=== PATIENT | male | born 1970 | race Caucasian/White ===

== ENCOUNTER 2018-02-19 16:50 | Emergency (ER) | payer OTHER, SELFPAY ==
[2018-02-19 16:56] VITALS: BP 218/102; PULSE 92; RESP 16; TEMP 36.7; O2SAT 98
--- NOTE | 2018-02-19 17:26 | ED.GENADUL_ITS ---
Discharge Plan Disposition Patient Disposition: HOME Condition: Improving Discharge Details Chief Complaint: FacialProb Clinical Impression: Acute torticollis ED Provider: Ruel Colin Home Meds and New Rx's Prescriptions: New methocarbamol 500 mg tablet 500 - 1,000 mg PO Q6H Qty: 14 RF: 0 Continue simvastatin 10 mg Tablet 10 mg PO DAILY RF: 0 metformin 1,000 mg Tablet 1,000 mg PO DAILY RF: 0 Discharge Instructions Instructions: Spasmodic Torticollis (ED) Additional Instructions: Return if you have worsening discomfort, develop a recurrent headache, develop a fever, or any other acute concerns as we discussed. Continue ice topically 20 minutes at a time, alternating with heat. May use gentle massage as well. Please trial methocarbamol 500-1000 mg every 6 hours as needed for discomfort. May continue to use of ibuprofen 800 mg every 8 hours. Follow-up with regular doctor for recheck and to have your blood pressure repeated. Continue all of your regularly prescribed medication Medical Decision Making 47-year-old male presents with the insidious onset of right neck pain that was severe earlier in the day and associated with inability to turn his neck. Improved with ice therapy today. He arrives with no fever, and pain with a history of hypertension and elevated blood pressure. His neurologic examination is unremarkable without focal motor, sensory deficits. He has reproducible pain on exam with palpation of the anterior cervical neck musculature. Discussed with him that I cannot rule out underlying vascular injury without obtaining a CT scan. Patient states he does not wish to pursue this at this time. The presentation is consistent with muscular pain and spasm and will trial a course of methocarbamol with ongoing use of heat and ice therapy at home. Patient and his partner understand return precautions to the ED. He will have his blood pressure rechecked in the outpatient setting. Return precautions to the ED were discussed at the bedside prior to discharge. HPI General Mode of arrival: ambulatory . Date/Time Provider Initiated Documentation: 02/19/18 16:54 . Limitations to Documentation: no limitations . Information obtained by: patient . History of Present Illness 47 year old M presents to the emergency department with the chief complaint of Right neck pain, described as moderate, Quality is described as aching, dull and constant, and is localized to the right. Patient reports no radiation. Patient started experiencing this day(s) and it has been constant. Cold therapy improves symptom(s), Movement worsens symptoms . HPI Narrative: 47-year-old male presents from home with his partner. He works moving granite blocks and after work yesterday developed gradual onset of right neck pain was associated with transient headache. It improved with heat, ice, ibuprofen. He went back to work and it recurred today and he came home unable to look towards the right due to pain. His partner applied ice with some improvement and now feels better with movement of the neck. He denies fall or other injury. There was no abrupt onset of the pain. He has no motor weakness, numbness, tingling. His headache is resolved. He has no visual deficits. Related Data Home Medications Medication Instructions Recorded Confirmed metformin 1,000 mg PO DAILY 02/19/18 02/19/18 methocarbamol 500 - 1,000 mg PO Q6H #14 tab 02/19/18 simvastatin 10 mg PO DAILY 02/19/18 02/19/18 Previous Rx's Medication Instructions Recorded methocarbamol 500 - 1,000 mg PO Q6H #14 tab 02/19/18 Allergies Allergy/AdvReac Type Severity Reaction Status Date / Time No Known Allergies Allergy Unverified 02/19/18 17:00 General Stated Complaint: FacialProb GONZALES: 3 Review of Systems Review of Systems 6 systems reviewed and otherwise neg Exam Narrative Exam Narrative: GEN: awake, alert, oriented 3. Pleasant, well groomed, interactive. HEAD: Normocephalic, atraumatic ENT: Mucous membranes moist, oropharynx unremarkable, External ear exam unremarkable EYES: PERRL, EOMI NECK: Full ROM, no WILLIAM, no menigismus. The right anterior paraspinous muscles are tender to palpation with spasm present CHEST/RESP: Nontender, clear to auscultation bilateral, no wheeze/rhonchi/rales CARDIOVASCULAR: RRR, no murmur, rub cayetano. 2+ Rad pulse bilateral ABDOMEN: Soft, nontender, no mass. +Bowel sounds EXT: Full ROM, no edema, no rash Neuro: Grossly normal neurologic exam, conversant, interactive. Cranial nerves II through XII intact. Finger to nose intact. Psych: Speech fluent, thoughts congruent, affect normal Course Vital Signs Temperature 36.7 C 02/19/18 16:56 Pulse 92 H 02/19/18 16:56 Respiratory Rate 16 02/19/18 16:56 Blood Pressure 218/102 H 02/19/18 16:56 Pulse Oximetry 98 02/19/18 16:56 Temperature 36.7 C 02/19/18 16:56 Temperature Source Skin 02/19/18 16:56 Pulse 92 H 02/19/18 16:56 Respiratory Rate 16 02/19/18 16:56 Blood Pressure 218/102 H 02/19/18 16:56 Blood Pressure Position Sitting 02/19/18 16:56 Pulse Oximetry 98 02/19/18 16:56 Oxygen Delivery Method Room Air 02/19/18 16:56 Oxygen Flow Rate 0 02/19/18 16:56 Pain Level 7 02/19/18 16:56
[2018-02-19] MEDS: Methocarbamol 500 MG TAB 1000 MG PO (17:30)
[2018-02-19] MEDS: Ibuprofen 800 MG TAB PO (17:30)
== END 2018-02-19 18:09 | disposition home or self-care (01) ==
LOC: ER 17:44
PROVIDERS: Emergency Provider Emergency Medicine; PCP Internal Medicine
DX: G24.3 Spasmodic torticollis (principal); X50.0XXA Overexertion from strenuous movement or load, initial encounter; Y99.0 Civilian activity done for income or pay; E11.9 Type 2 diabetes mellitus without complications; I10 Essential (primary) hypertension
CPT/HCPCS: 99283

== ENCOUNTER 2023-10-23 07:50 | Observation (INO) | payer BC, SELFPAY ==
[2023-10-23] VITALS (36 sets, daily range): BP systolic 141–188; BP diastolic 30–78; PULSE 79–94; RESP 18–32; TEMP 36.6–38.1; O2SAT 95–98
--- NOTE | 2023-10-23 07:58 | ED.GENADUL_ITS ---
Discharge Plan Disposition Patient Disposition: Admit to [facility] Discharge Details Chief Complaint: Cellulitis Clinical Impression: Cellulitis of left foot, Puncture wound of left foot Primary Care Provider: Nilo Thacker ED Provider: Pankaj Yousif [place] Meds and New Rx's Prescriptions: No Action simvastatin 10 mg Tablet 10 mg PO DAILY metformin 1,000 mg Tablet 1,000 mg PO DAILY lisinopril 40 mg tablet 40 mg PO DAILY Patient Comments: TAKE 1 TABLET BY MOUTH ONCE DAILY FOR 90 DAYS glyburide 5 mg tablet 5 mg PO DAILY Patient Comments: TAKE 1 TABLET BY MOUTH TWICE DAILY FOR 90 DAYS metoprolol tartrate 100 mg tablet 100 mg PO DAILY Patient Comments: TAKE 1 TABLET BY MOUTH TWICE DAILY FOR 90 DAYS levofloxacin 500 mg tablet 500 mg PO DAILY Patient Comments: TAKE ONE TABLET BY MOUTH EVERY DAY FOR 10 DAYS HPI General Date/Time Provider Initiated Documentation: 10/23/23 07:58 . HPI Narrative: MDM This is an overall well-appearing normothermic and not tachycardic 52-year-old diabetic male with left-sided foot ulcer for which he will go for MRI following piperacillin/tazobactam vancomycin blood cultures and assessment of lactate to assess for sepsis. No pain out of proportion to suggest necrotizing soft tissue infection. Patient does have some ischemic changes adjacent to the puncture wound his left foot however his left foot is warm well-perfused so I am not concerned for critical limb ischemia so I do not feel that the patient requires a CT angiogram with runoffs. No significant trauma to left lower extremity so I do not feel that the patient requires an x-ray. No nausea no vomiting to suggest increased risk for intra-abdominal infection. Good range of motion in left ankle and no history of IV drug use so not concern for septic joint. No rash to foot to suggest zoster. No midfoot instability to suggest Lisfranc injury. No left lateral foot instability to suggest Olguin fracture. 9:25 AM Patient metabolic panel showing elevated renal function. No prior for comparison. No acute electrolyte abnormalities. Mild lactic acidosis of 1.8 mmol/L. CBC shows leukocytosis. Normocytic anemia. No thrombocytopenia. Elevated ESR at 52 mm/h. 9:40 AM CRP markedly elevated at 23.74 mg/dL. 12:29 PM I was in touch with Dr. Joy from orthopedics he advised podiatry consult. Unfortunately we do not have podiatry available today. I was in touch with Dr. Joy from orthopedics he advised podiatry consult. I have reached out to [facility] to request podiatry consult. Will keep patient n.p.o. initiate maintenance fluids with NS at 125 cc an hour. 1:42 PM Still waiting on Orthopedic consult from [facility]. MRI read as showing No signs of osteomyelitis nor abscess. 3 PM I spoke with the orthopedic team at [facility], Dr. Miles Dee. He advised hospitalization for IV antibiotics. 4 PM I spoke to Dr. Odonnell who agreed graciously to accept the patient for hospitalization. Patient reports that he does drink alcohol but has no history of withdrawal. He reports that he has not had anything to drink in the past week. He is hypertensive but not tachycardic nor tremulous. My suspicion is low for withdrawal. Given that he was anxious before the MRI and feels slightly anxious now we will treat him with 50 mg of longer acting chlordiazepoxide. HPI This is a 52-year-old [id number] diabetic arrived to the emergency department via private vehicle in setting of left foot pain. Patient was reportedly seen 2 days ago by his primary care provider. He was found to have a staple on the bottom of his left foot. He was initiated on levofloxacin. He has noticed increased redness streaking up onto the dorsal aspect of his left foot. He endorsed a fever last night. No nausea vomiting chest pain no abdominal pain. Patient has been taking decreased p.o. for the past several days. No falls. Exam General: Well-appearing in no acute distress speaking in complete sentences. Head: Normocephalic, atraumatic. Eye: Extraocular eye movements intact. No conjunctival injection. No scleral icterus. Ear, nose, mouth, throat: Grossly normal inspection. Normal voice, handling secretions normally. Neck: Trachea midline. Cardiovascular: Well-perfused distal extremities. Respiratory: Nonlabored respiration. Gastrointestinal: Nondistended abdomen. Musculoskeletal: On the dorsal aspect of the patient's left foot there is a puncture wound overlying the head of the fourth metatarsal with distal ischemic tissue. Left foot warm well-perfused with 2+ PT and DP pulses. No pain out of proportion. No midfoot instability. Skin: Normal for age and race, grossly normal temperature and turgor. No acute rash. Neurologic: Alert and appropriate, no apparent acute deficits. Psychiatric: Mood and manner are appropriate. Grooming and personal hygiene are appropriate. Related Data Home Medications Medication Instructions Recorded Confirmed metformin 1,000 mg tablet 1,000 mg PO DAILY 02/19/18 10/23/23 simvastatin 10 mg tablet 10 mg PO DAILY 02/19/18 10/23/23 glyburide 5 mg tablet 5 mg PO DAILY 10/23/23 10/23/23 levofloxacin 500 mg tablet 500 mg PO DAILY 10/23/23 10/23/23 lisinopril 40 mg tablet 40 mg PO DAILY 10/23/23 10/23/23 metoprolol tartrate 100 mg tablet 100 mg PO DAILY 10/23/23 10/23/23 Allergies Allergy/AdvReac Type Severity Reaction Status Date / Time No Known Allergies Allergy Unverified 10/23/23 08:04 General GONZALES: 3 Medical Decision Making Quality:SDOH Health Related Social Needs: 2 No Data to Display PFSH All Active Problems (Updated 10/23/23 @ 14:28 by Pankaj Yousif MD) Puncture wound of left foot (Acute) Cellulitis of left foot (Acute) Social History Smoking/Tobacco Use Status: Never Smoking risk assessment performed?: Yes Drug use: Never Do you feel safe in your relationship?: Yes
--- NOTE | 2023-10-23 08:00 | DI.MRI_ITS ---
Exam(s) MR LOWER EXTREMITY LT WO/W EXAM: MR LOWER EXTREMITY LT WO/W CLINICAL HISTORY: Diabetic foot infection. TECHNIQUE: Multiplanar multisequence MRI was performed. CONTRAST MATERIAL: IV Contrast: 20 mL of Dotarem contrast administered. COMPARISON: No exams were available for comparison FINDINGS: BONES/JOINTS: No evidence of fracture. No evidence of bone lesion. No marrow edema is present to sugg est osteomyelitis. LIGAMENTS: The medial and lateral collateral ligaments are intact. MUSCULOTENDINOUS STRUCTURES: Visualized portion of the planar fascia is unremarkable. The visualized intrinsic muscles and tendons of the foot are unremarkable. SOFT TISSUES: There is edema seen in the soft tissues of the foot but no focal fluid collection is se en to suggest an abscess. There is a small defect in the skin on the plantar surface of the foot cleve r the region of the 3rd metatarsophalangeal joint (series [id number], image 19). This may represent the p atient's wound site. ENHANCEMENT: No suspicious enhancement identified. OTHER FINDINGS: None. IMPRESSION: 1. No findings to suggest osteomyelitis or abscess. 2. Edema seen in the soft tissues of the foot which may represent a cellulitis. 3. Small skin defect on the plantar surface of the foot near the region of the 3rd metatarsophalangea l joint which may represent the patient's wound site. DATA REPOSITORY:
[2023-10-23 09:05] LABS: Abs Immature Grans 0.18 10^3/uL (0.0-0.06); Absolute Basophil Count 0.03 10^3/uL (0.0-0.2); Absolute Eosinophil Count 0.04 10^3/uL (0.0-0.7); Absolute Lymphocyte Count 1.34 10^3/uL (1.2-3.4); Absolute Monocyte Count 0.86 10^3/uL (0.1-0.8); Absolute Neutrophil Count 10.33 10^3/uL (1.2-6.7); Basophils % 0.2 %; Eosinophils % 0.3 %; HCT 35.6 % (40.0-50.0); HGB 12.5 g/dL (13.5-17.5); Immature Grans % 1.4 %; Lactate 1.8 mmol/L (0.6-1.4); Lymphocytes % 10.5 %; MCH 29.6 pg (27.0-33.0); MCHC 35.1 % (32.0-36.0); MCV 84 fL (80-95); MPV 10.8 fL (8.0-11.0); Monocytes % 6.7 %; Neutrophils % 80.9 %; Platelet Count 146 10^3/uL (130-400); RBC 4.23 10^6/uL (4.36-5.78); RDW-SD 36.7 fL; WBC 12.77 10^3/uL (4.4-10.8)
[2023-10-23] MEDS: Normal Saline 500 ML IV (09:05)
[2023-10-23 09:07] LABS: ESR 52 mm/hr (0-20)
[2023-10-23] MEDS: Midazolam 2 MG/2 ML VIAL IVP ×2 (09:10→11:11)
[2023-10-23] MEDS: PIPERACILLIN/TAZO 4.5 GM in Normal Saline 100 ML IVPB ×2 (09:11→18:42)
[2023-10-23 09:20] LABS: Anion Gap 7.1 mmol/L (3-11); BUN 25 mg/dL (7-18); CO2 27.9 mmol/L (21.0-32.0); CREATININE 1.5 mg/dL (0.70-1.30); Calcium 8.5 mg/dL (8.5-10.1); Chloride 98 mmol/L (98-107); Estimated GFR 54.98 (mL/min/1.73m2); Glucose 266 mg/dL (74-106); Potassium 4.4 mmol/L (3.5-5.1); Sodium 133 mmol/L (136-145)
[2023-10-23 09:30] LABS: C-Reactive Protein 23.74 mg/dL (<or=0.5)
[2023-10-23] MEDS: VANCOMYCIN/WATER (PEG) 2 GM/400 ML BAG IVPB (10:06)
[2023-10-23] MEDS: Gadoterate meglumine 20 ML SYRINGE IVP (12:07)
[2023-10-23] MEDS: Normal Saline Flush 10 ML SYR IVP ×3 (12:07→21:17)
[2023-10-23] MEDS: Normal Saline 1,000 ML 125 ML IV (12:33)
--- NOTE | 2023-10-23 14:45 | DI.RAD_ITS ---
Exam(s) XR FOOT LT COMPLETE EXAM: XR FOOT LT COMPLETE CLINICAL HISTORY: ? foreign body. TECHNIQUE: 2D digital imaging was performed of the left foot. Three images were obtained. AP, obli que and lateral views were obtained. COMPARISON: No exams were available for comparison FINDINGS: BONES: No acute fracture is present. No bony destructive lesion is seen. Pes planus. There is an ent hesophyte at the posterior calcaneus. The distal aspect of a sideplate is seen in the distal fibula. JOINTS: No dislocation present. Degenerative changes are present particularly at the talonavicular rigo int. SOFT TISSUE: There is soft tissue swelling of the foot. No radiopaque foreign body is identified. E xtensive vascular calcifications are present. IMPRESSION: No radiopaque foreign body is identified. DATA REPOSITORY: RADIATION DOSE DELIVERED:
[2023-10-23] MEDS: chlordiazePOXIDE 25 MG CAP 50 MG PO (15:54)
--- NOTE | 2023-10-23 16:50 | HPE_ITS ---
Date of service: 10/23/23 Time of Service: 16:50 Assessment and Plan Assessment and plan (1) Sepsis: Status: Acute Assessment and plan: Meeting SIRS criteria with HR at 91 and RR at 29 & Source of infection left foot wound, cellulitis, ulcer---> Sepsis Not severe as BP is stable As below (2) Cellulitis of left foot: Status: Acute Assessment and plan: ortho consult in ED and [facility] podiatry consult Continue IV antibiotics: Vancomycin and Zosyn Pharmacy consult Monitor renal function Monitor for severe sepsis: VS q4 and PRN Blood cultures pending (3) Diabetes: Status: Chronic Assessment and plan: Gluc AC and HS with SSI coverage Cr 1.5 baseline uniknown but reports not CKD ; will start slow IV hydration BMP in AM (4) ETOH abuse: Status: Chronic Assessment and plan: CIWA scoring Q4 with VS If positive scoring f/u with rehabilitation teacher provider for PRN phenobarbital dosing (5) On deep vein thrombosis (DVT) prophylaxis: Status: Acute Assessment and plan: On LMWH SC (6) Discharge planning issues: Status: Acute Assessment and plan: CM to f/u Discussed with Dr Barbour History of Present Illness History of Present Illness Chief Complaint: Left foot pain Narrative: This 48 years old male patient with a past medical history of [id number] diabetes, EtOH abuse without drinking for the past week presented to the ED at [facility] via private vehicle for evaluation of left foot pain. The patient reported having been seen 2 days ago by his primary care provider at which point a staple was removed from the bottom of his left foot with initiation of oral levofloxacin. The patient reported noticing increased redness streaking up onto the dorsal aspect of his left foot. The patient reported a fever the previous night as well as decreased oral intake for the past several days. The patient denies falls, nausea vomiting. Upon examination the ED provider noticed a left foot discolored ulcer on the sole of his foot. Labs in the ED were unremarkable except for a WBC of 12.77 and H&H of 12.5 and 35.6, absolute neutrophil count of 10.33, ESR of 52, lactate of 1.8, sodium of 133, BUN of 25 with a creatinine of 1.5, CRP of 23.74. Blood cultures were drawn and pending. MRI of the lower left foot showed no abscess or osteomyelitis but soft tissue edema which may represent cellulitis; wound site possibly noticed on the plantar surface of the foot near the third metatarsophalangeal joint. X-ray showed no fracture and no foreign body to the left foot. Dr. Joy from the orthopedic services advised for podiatry consult but podiatry was not available today onsite. Orthopedist from [facility] Dr. Miles Dee advised for hospitalization and IV antibiotics. The hospitalist was contacted and the patient admitted to the medical surgical floor for evaluation of left foot wound, ulcer, left foot cellulitis. Vancomycin and Zosyn were initiated. The patient received 50 mg of long-acting Librium in the ED prior to MRI due to anxiety but low suspicion of alcohol withdrawal. The patient denied dizziness, change in vision, chest pain or abdominal pain, other gastrointestinal or genitourinary symptoms. The patient confirms that he is a full code. Review of Systems All systems reviewed & are unremarkable except as noted in HPI and below PFSH All Active Problems (Updated 10/23/23 @ 17:27 by Janina Deal APRN) Sepsis (Acute) ETOH abuse (Chronic) Discharge planning issues (Acute) On deep vein thrombosis (DVT) prophylaxis (Acute) Diabetes (Chronic) Puncture wound of left foot (Acute) Cellulitis of left foot (Acute) Social History Smoking/Tobacco Use Status: Never Smoking risk assessment performed?: Yes Drug use: Never Do you feel safe in your relationship?: Yes Meds Allergies and Home Medications Allergies Allergy/AdvReac Type Severity Reaction Status Date / Time No Known Allergies Allergy Unverified 10/23/23 08:04 Home Medications Medication Instructions Recorded Confirmed Type metformin 1,000 mg tablet 1,000 mg PO DAILY 02/19/18 10/23/23 History glyburide 5 mg tablet 5 mg PO DAILY 10/23/23 10/23/23 History levofloxacin 500 mg tablet 500 mg PO DAILY 10/23/23 10/23/23 History lisinopril 40 mg tablet 40 mg PO DAILY 10/23/23 10/23/23 History metoprolol tartrate 100 mg tablet 100 mg PO BID 10/23/23 10/23/23 History simvastatin 40 mg tablet 40 mg PO QPM 06/28/24 06/28/24 History Exam Narrative Exam Narrative: Constitutional The patient is sitting in chair comfortable reports minimal pain when left foot is examined The patient is without acute distress and has an obese body habitus. HENMT: Facial structures with normal appearance Neuro:alert and oriented X3 No neurological focal deficit Resp: Clear lung bilaterally Cardio: regular rhythm, S1, S2, no murmur, capillary refill<3 sec., bilateral radial and dorsalis pedis pulses are positive, edmea to left LE > right LE GI: Abdomen is not distended, soft and non tender, bowel sounds are present : Negative Costovertebral angle tenderness, no bladder distension Back/spine/Pelvis: No back tenderness, normal alignment Integumentary: ulcer to the plantar aspect of the left foot at the 3rd level with central wound, cap refill + to left toe despite discoloration Extremities: strength 5/5 to bilateral lower and upper extremities Psych: RASS 0, congruent mood and normal affect. Results Labs 10/23/23 08:49 10/23/23 08:49 Labs: Laboratory Results - last 24 hr 10/23/23 08:49 WBC 12.77 H RBC 4.23 L Hgb 12.5 L Hct 35.6 L MCV 84 MCH 29.6 MCHC 35.1 RDW 12.0 Plt Count 146 MPV 10.8 Immature Gran % 1.4 Neutrophils % 80.9 Lymphocytes % 10.5 Monocytes % 6.7 Eosinophils % 0.3 Basophils % 0.2 Nucleated RBC % 0.0 Absolute Neutrophils 10.33 H Absolute Lymphocytes 1.34 Absolute Monocytes 0.86 H Absolute Eosinophils 0.04 Absolute Basophils 0.03 ESR 52 H VBG Lactate 1.8 H Sodium 133 L Potassium 4.4 Chloride 98 Carbon Dioxide 27.9 Anion Gap 7.1 BUN 25 H Creatinine 1.5 H Est GFR (CKD-EPI 2020) 54.98 Glucose 266 H Calcium 8.5 C-Reactive Protein 23.74 H Last Vital Signs Temp 36.6 C 10/23/23 08:03 Pulse 91 H 10/23/23 15:55 Resp 29 H 10/23/23 13:20 BP 175/33 H 10/23/23 15:55 Pulse Ox 96 10/23/23 15:54 Time Spent Time spent with Patient: >75 minutes Time was spent: preparing to see the patient(eg.review tests), obtaining and/or reviewing separately otained hiistory, ordering medications,tests, procedures, referring, communicating with other health care director rn, indepentently interpreting results, counseling the patient and care coordination
--- NOTE | 2023-10-23 17:41 | NUR.NOTE ---
Nursing Note: Patient arrived to floor alert and orientated, denies pain at this time, ambulated from wheelchair to chair, left foot +4 edema, redness, toe darkened and cool, darkened warm area also noted on upper foot pad, vitals in flow sheet, provider notified of sepsis concern and will come to floor to evaluate. Per INSULATION ESTIMATOR patient received antibiotics in ER.
[2023-10-23] MEDS: Enoxaparin 40 MG/0.4 ML SYR SC (18:35)
[2023-10-23] MEDS: Insulin Aspart 300 UNITS/3 ML PEN SC ×2 (18:43→22:53)
[2023-10-23] MEDS: Metoprolol 50 MG TAB 100 MG PO (20:25)
[2023-10-23] MEDS: Simvastatin 40 MG TAB PO (20:26)
[2023-10-23] MEDS: Lactated Ringers 1,000 ML 80 ML IV (20:37)
[2023-10-23] MEDS: VANCOMYCIN/WATER (PEG) 1 GM/200 ML BAG IV (22:59)
[2023-10-24] VITALS (7 sets, daily range): BP systolic 145–169; BP diastolic 48–69; PULSE 83–94; RESP 16–18; TEMP 36.7–38; O2SAT 94–98
--- NOTE | 2023-10-24 | DI.CT_ITS ---
Exam(s) CT ABD AORTA CTA W RUNOFF EXAM: CT ABD AORTA CTA W RUNOFF CLINICAL HISTORY: ischemic toes. TECHNIQUE: Imaging Protocol: Axial computed tomography images with coronal and sagittal reformatted images were created and reviewed CONTRAST MATERIAL: Intravenous: Omnipaque 350 Contrast volume:150 Oral: None COMPARISON: No exams were available for comparison FINDINGS: AORTA: No evidence of abdominal aortic aneurysm. No dissection. The abdominal aorta is calcified bu t not enlarged. Common iliac arteries are calcified but not enlarged nor significantly stenotic. Ex ternal iliac arteries are patent. Internal iliac arteries are heavily calcified. Bilateral common femoral arteries are peripherally calcified but patent. Both SFA arteries are heavi ly calcified making evaluation difficult. Multilevel disease but no occlusion of these vessels seen and the popliteal arteries are patent bilaterally and without aneurysmal dilatation. The runoff vess els in the calves are heavily calcified, making evaluation difficult. ABDOMEN: There is no ascites. LIVER: Liver is hypodense implying steatosis. There no discrete focal hepatic lesions identified . No dilated intrahepatic ducts. GALLBLADDER/BILIARY: Gallbladder is contracted. Cannot exclude calculi. CBD is not dilated. PANCREAS: No evidence of pancreatic mass nor dilatation of the pancreatic duct. SPLEEN: Spleen is not enlarged. There are no intrasplenic lesions. Splenic and portal veins are abdullahi nt. ADRENALS: There are no significant adrenal masses. KIDNEYS: Both kidneys exhibit normal size. No cysts nor solid renal masses. No calculi nor hydronep hrosis. No solid renal masses. ABDOMINAL AORTA: Calcified but not enlarged. LYMPH NODES: There is no retroperitoneal nor para-aortic adenopathy. No obvious mesenteric masses. ABDOMINAL WALL: No evidence of significant anterior abdominal wall hernia. GI: There is no evidence of bowel obstruction, free air, nor abscess. PELVIS: LYMPH NODES: There is no intrapelvic nor inguinal adenopathy. GI: No evidence of appendicitis.No evidence of sigmoid diverticulitis. URINARY BLADDER: No calculi nor masses evident REPRODUCTIVE: Prostate size normal. Seminal vesicles unremarkable. Calcification noted in bilateral vas deferens, usually seen with diabetes. OSSEOUS: No significant osseous lesions. IMPRESSION: 1. There is heavy peripheral calcification of the runoff vessels of both calves, limiting assessment for patency of these vessels. There is also calcification of the bilateral femoral arteries/SFAand b ilateral popliteal arteries. There are no popliteal artery aneurysms. Tibioperoneal trunks are also calcified. 2. No evidence of abdominal aortic aneurysm. No aneurysm nor tight stenosis of the iliac arteries. The internal iliac arteries are heavily calcified. 3. Calcification of bilateral vas deferens noted. This is usually seen with diabetes. 4. Other findings as above. RADIATION DOSE DELIVERED: 1,575.74mGy.cm Total DLP DATA REPOSITORY: All CT scans at this facility are submitted to the National Radiology Data Registry (NRDR) Dose Index Registry (DIR) with the [employer] ([employer]). RADIATION OPTIMIZATION: All CT scans at this facility use at least one of these dose optimization te chniques: automated exposure control; mA and/or kV adjustment per patient size (includes targeted exa ms where dose is matched to clinical indication); or iterative reconstruction.
--- NOTE | 2023-10-24 | DI.CT_ITS ---
Exam(s) CT CHEST WO EXAM: CT CHEST WO CLINICAL HISTORY: atheroembolic event. TECHNIQUE: Imaging protocol: Axial computed tomography images were obtained and coronal and sagittal reformatted images were created and reviewed. COMPARISON: No exams were available for comparison FINDINGS: Examination is limited due to the lack of IV contrast material. The examination is limited due to pa tient motion artifact. Tracheobronchial tree: Patent where visualized. Pulmonary parenchyma: No consolidation or dominant measurable mass. No architectural distortion. Mediastinum and Simran: No dominant adenopathy or fluid collection. The esophagus is unremarkable. Thyroid gland: Unremarkable. Pleura: No effusion or pneumothorax. Heart: Cardiomegaly. Coronary artery calcification is present. No pericardial effusion. Aorta: Thoracic aorta non-dilated. Atherosclerotic calcification is present. Upper abdomen: There is decreased attenuation of the liver suggesting fatty infiltration. Lymph nodes: Within normal limits. Soft tissues: Bilateral gynecomastia. Bones:Within normal limits for the patient's age. IMPRESSION: 1. No acute pulmonary process. 2. Vascular evaluation is limited due to the lack of IV contrast material. 3. Coronary artery calcification and atherosclerotic calcification is present. 4. No evidence of a thoracic aortic aneurysm. 5. Fatty infiltration of the liver. RADIATION DOSE DELIVERED: 584.68mGy.cm Total DLP 584.68mGy.cm Total DLP DATA REPOSITORY: All CT scans at this facility are submitted to the National Radiology Data Registry (NRDR) Dose Index Registry (DIR) with the [employer] (ACR). RADIATION OPTIMIZATION: All CT scans at this facility use at least one of these dose optimization te chniques: automated exposure control; mA and/or kV adjustment per patient size (includes targeted exa ms where dose is matched to clinical indication); or iterative reconstruction.
[2023-10-24] MEDS: Acetaminophen 325 MG TAB PO ×3 (00:59→20:34)
[2023-10-24] MEDS: PIPERACILLIN/TAZO 4.5 GM in Normal Saline 100 ML IVPB ×4 (01:05→20:34)
[2023-10-24 06:29] LABS: Abs Immature Grans 0.14 10^3/uL (0.0-0.06); Absolute Basophil Count 0.02 10^3/uL (0.0-0.2); Absolute Eosinophil Count 0.05 10^3/uL (0.0-0.7); Absolute Lymphocyte Count 1.23 10^3/uL (1.2-3.4); Absolute Monocyte Count 0.97 10^3/uL (0.1-0.8); Absolute Neutrophil Count 7.74 10^3/uL (1.2-6.7); Basophils % 0.2 %; Eosinophils % 0.5 %; HCT 32.3 % (40.0-50.0); HGB 11.2 g/dL (13.5-17.5); Immature Grans % 1.4 %; Lymphocytes % 12.1 %; MCH 28.9 pg (27.0-33.0); MCHC 34.7 % (32.0-36.0); MCV 84 fL (80-95); MPV 10.8 fL (8.0-11.0); Monocytes % 9.6 %; Neutrophils % 76.2 %; Platelet Count 176 10^3/uL (130-400); RBC 3.87 10^6/uL (4.36-5.78); RDW 12.2 % (11.8-14.1); RDW-SD 37.1 fL; WBC 10.15 10^3/uL (4.4-10.8)
[2023-10-24 06:39] LABS: Anion Gap 12.8 mmol/L (3-11); BUN 24 mg/dL (7-18); CO2 23.2 mmol/L (21.0-32.0); CREATININE 1.6 mg/dL (0.70-1.30); Calcium 8.3 mg/dL (8.5-10.1); Chloride 101 mmol/L (98-107); Estimated GFR 50.88 (mL/min/1.73m2); Glucose 222 mg/dL (74-106); Potassium 3.8 mmol/L (3.5-5.1); Sodium 137 mmol/L (136-145)
[2023-10-24 06:40] LABS: Magnesium 1.4 mg/dL (1.8-2.4)
[2023-10-24] MEDS: Normal Saline Flush 10 ML SYR IVP ×2 (08:14→20:37)
[2023-10-24] MEDS: Metoprolol 50 MG TAB 100 MG PO ×2 (08:14→21:05)
[2023-10-24] MEDS: Insulin Aspart 300 UNITS/3 ML PEN SC ×4 (08:19→23:06)
--- NOTE | 2023-10-24 09:00 | INITIAL_ITS ---
Date of service: 10/24/23 Time of Service: 09:00 Care Management Initial Assmt Initial Assessment Reason for Hospitalization: sepsis Functional Status/Living Situation Patient Presentation: Kenisha was sitting up in bed visiting with his partner Alba when CM met with him. He was polite but did not fully engage with CM, answering questions with minimal responses. Kenisha denied having pain at this time but indicated that he does not feel well. He reported that he has not been eating much recently. When his lunch tray was delivered he was not very interested.. Kenisha was admitted with left foot pain. He had a staple removed from his foot a couple of days ago by his PCP and was placed on antibiotics. He presented to the ED when he developed pain, fever and cellulitis. Kenisha informed CM that he plans to discharge home today although that is not the provider's plan at this time. Town of Residence: [place], [place] Resides with: Other (marketing developer Alba) Significant Other/Family: Local Employment Status: Employed Instrumental Activities of Daily Living (ADLs): Independent Medications Medication Management: No Issues/Barriers identified Advance Directives Advance Directives: Do you have an Advance Directive: N 02/19/18 17:44 AD On File at [facility]: N 02/19/18 17:44 Date Asked 10/23/23 10/23/23 07:59 AD Date Reviewed COLST On File at [facility] COLST Date Scanned Comment: CM provided forms Code Status Resuscitation Status Full Code Portal Pt does not currently have a portal and education provided: No Portal Education: Other (not local) Insurance Coverage/Financial Issues Insurance: /[facility] ACO Member: No Care Team Visit Care Team Role Provider Type Nilo Thacker Primary Care Provider NON-[facility] STAFF PHYSICIAN Lydia Ellsworth, DPM Other [facility]iders [facility] Catrachito Wiseman, KENIA Other Providers CERT REG NURSE PROJECT CONTROL MANAGER SUSAN MyrickM Other Providers [facility] Pankaj Yousif MD Emergency Provider [facility] STAFF PHYSICIAN Paulino Barbour MD Admit Provider [facility] STAFF PHYSICIAN Attending Provider Discharge Potential Discharge Needs: PCP F/U Appt Anticipated Barriers to Discharge: Medical Status Patient/Family Education Needs: Review discharge instructions, discuss Ask Me Three Transportation: Private vehicle Plan: Anticipate Kenisha will be discharged home with no new services when medically stable. He will follow up with his community provider and plan of care and transport with a friend. CM will follow and continue to assess for discharge needs. PFSH All Active Problems (Updated 10/24/23 @ 11:48 by Wilma Sabillon NP) ETOH abuse (Chronic) Discharge planning issues (Acute) On deep vein thrombosis (DVT) prophylaxis (Acute) Diabetes (Chronic) Puncture wound of left foot (Acute) Cellulitis of left foot (Acute) Social History Smoking/Tobacco Use Status: Never Smoking risk assessment performed?: Yes Drug use: Never Housing: house Do you feel safe in your relationship?: Yes SDOH(Care Management) Screening Will the Patient Participate in the Screening?: Yes Do you worry about having a steady place to live?: no Problems where you live: no known problems In the past 12 months, have you had to go without electric, gas, oil or water in your home?: no Have you or anyone in your house had to go without enough food to eat?: no Has lack of transportation kept you from medical appointments or from doing things needed for daily living?: no Has anyone in your support network made you feel unsafe for any reason?: no
[2023-10-24] MEDS: VANCOMYCIN/WATER (PEG) 1 GM/200 ML BAG IV ×2 (10:16→23:06)
--- NOTE | 2023-10-24 11:25 | PGE_ITS ---
Date of Service Date of service: 10/24/23 Time of Service: 11:25 Assessment and Plan Assessment and plan (1) Sepsis: Status: Resolved Assessment and plan: source left foot cellulitis, hemodynamically stable (2) Cellulitis of left foot: Status: Acute Assessment and plan: ortho consult in ED and [facility] [place] pod[place]ry consult Continue IV antibiotics: Vancomycin and Zosyn Pharmacy consult Monitor renal function Monitor for severe sepsis: VS q4 and PRN Blood cultures pending Third and fourth toes blue concern for blue toe syndrome. Will administer 325 mg aspirin and start aspirin 81 mg daily obtain CTA with runoff to evaluate for possible atheroembolic event consider vascular surgery consultation if appropriate (3) Diabetes: Status: Chronic Assessment and plan: Gluc AC and HS with SSI coverage Cr 1.5 baseline uniknown but reports not CKD ; will start slow IV hydration BMP in AM (4) ETOH abuse: Status: Chronic Assessment and plan: CIWA scoring Q4 with VS If positive scoring f/u with relationship management lead provider for PRN phenobarbital dosing (5) On deep vein thrombosis (DVT) prophylaxis: Status: Acute Assessment and plan: On LMWH SC (6) Discharge planning issues: Status: Acute Assessment and plan: CM to f/u Discussed with Dr Barbour Subjective Subjective Patient reports: no new complaints, feels better, pain is less and afebrile Interval history since last seen: edema and erythema improving but now 2 toes are blue (3&4). Exam Narrative Exam Narrative: Morbidly obese male appearing older than stated age in no acute distress sitting in a recliner head is atraumatic face is flushed eyes nonicteric noninjected oral mucosas moist neck is supple full range of motion neurologic he is awake alert oriented no focal deficits skin is pink warm dry well-perfused cardiovascular regular rate and rhythm his respirations even and unlabored. Plantar aspect of left foot with decreased erythema within the skin markings ischemic tissue over fourth metatarsal remains consistent when compared with pictures in the record from the emergency department yesterday but new discoloration to third and fourth toe which are now blue. No increased pain out of proportion good pulses palpated foot is warm to touch sensation intact Objective Last Vital Signs Temp 37.5 C 10/24/23 07:39 Pulse 83 10/24/23 07:39 Resp 17 10/24/23 07:39 BP 169/69 H 10/24/23 07:39 Pulse Ox 98 10/24/23 07:39 Laboratory Results - last 24 hr 10/24/23 05:59 WBC 10.15 RBC 3.87 L Hgb 11.2 L Hct 32.3 L MCV 84 MCH 28.9 MCHC 34.7 RDW 12.2 Plt Count 176 MPV 10.8 Immature Gran % 1.4 Neutrophils % 76.2 Lymphocytes % 12.1 Monocytes % 9.6 Eosinophils % 0.5 Basophils % 0.2 Nucleated RBC % 0.0 Absolute Neutrophils 7.74 H Absolute Lymphocytes 1.23 Absolute Monocytes 0.97 H Absolute Eosinophils 0.05 Absolute Basophils 0.02 Sodium 137 Potassium 3.8 Chloride 101 Carbon Dioxide 23.2 Anion Gap 12.8 H BUN 24 H Creatinine 1.6 H Est GFR (CKD-EPI 2020) 50.88 Glucose 222 H Calcium 8.3 L Magnesium 1.4 L PAWSS Have you Been Recently Intoxicated or Drunk Within the Last 30 days?: No Have you Ever Experienced Previous Episodes of Alcohol Withdrawal?: No Have you ever Experienced Withdrawal Seizures?: No Have you ever Experienced Delirium Tremens(DT)s?: No Have you ever undergone Alcohol Rehabilitation Treatment (i.e, inpt ot outpatient treatment programs)?: No Have you ever Experienced Blackouts?: No Have you ever Combined Alcohol with other Downers within the last 90 days?: No Have you ever Combined Alcohol with any other Substance of Abuse during the last 90 days?: No Positive Blood Alcohol level on Presentation? [PCS.BAL]: No Evidence of Increased Autonomic Activity (i.e. HR>120, tremor, sweating, agitation, nausea)?: No Result: 0 Time Spent with Patient Time Spent with Patient: 35-49 minutes Time was spent: preparing to see the patient(eg.review tests), obtaining and/or reviewing separately otained hiistory, ordering medications,tests, procedures, referring, communicating with other health neonatal intensive care nurse, indepentently interpreting results and counseling the patient
[2023-10-24] MEDS: MAGNESIUM SULFATE 2 GM/50 ML BAG IVINF (12:09)
--- NOTE | 2023-10-24 13:00 | RT.EKG_ITS ---
APPROVED REPORT Exam: Resting ECG Reason for Exam: ischemic toes Patient Location: I HR:86 bpm ECG Measurements Heart Rate 86 AXIS [place] 149 P 40 QRSd 104 QRS -20 QT 352 T 1 QTc 422 Conclusion Sinus rhythm...normal P axis, V-rate 60- 99 late transition
[2023-10-24] MEDS: Aspirin E.C. 325 MG TABEC PO (13:07)
[2023-10-24 13:55] LABS: Lab Add On Test DONE
[2023-10-24 14:07] LABS: Calculated LDL 63 mg/dL (<100); Cholesterol 132 mg/dL (<200); HDL Cholesterol 34 mg/dL (40-60); Triglyceride 179 mg/dL (<150)
[2023-10-24] MEDS: Lactated Ringers 1,000 ML 100 ML IV (14:46)
[2023-10-24] MEDS: Omnipaque 350 MG/ML 100 ML BTL IJ (16:16)
[2023-10-24] MEDS: Normal Saline - Diluent 50 ML VIAL IJ ×2 (16:17→16:18)
[2023-10-24] MEDS: Omnipaque 350 MG/ML 50 ML BTL IJ (16:17)
--- NOTE | 2023-10-24 17:07 | DI.VRAD_ITS ---
PROCEDURE INFORMATION: Exam: CT Chest Without Contrast; Diagnostic Exam date and time: 10/24/2023 4:02 PM Age: 52 years old Clinical indication: Other: Atheroembolic event TECHNIQUE: Imaging protocol: Diagnostic computed tomography of the chest without contrast. 3D rendering (Not supervised by radiologist): MIP and/or 3D reconstructed images were created by the technologist. COMPARISON: CT ABD AORTA CTA W RUNOFF 10/24/2023 3:38 PM FINDINGS: Lungs: Lung windows are suboptimally visualized secondary to motion. No consolidation. Pleural spaces: Unremarkable. No pneumothorax. No pleural effusion. Heart: Borderline enlarged heart. Coronary arteries: Coronary artery calcification. Esophagus: Mildly thick-walled esophagus, correlate for reflux esophagitis. Lymph nodes: Unremarkable. No enlarged lymph nodes. Vasculature: Unremarkable. No aortic aneurysm. Bones/joints: Degenerative change of the spine Soft tissues: Gynecomastia. IMPRESSION: 1. Assessment of vascular structures is limited without IV contrast 2. Mildly thick-walled esophagus, correlate for reflux esophagitis. Dictated and Authenticated by: Ayala Bates MD. Ordering:CHANG Dillon MD
[2023-10-24] MEDS: Enoxaparin 40 MG/0.4 ML SYR SC (17:36)
--- NOTE | 2023-10-24 18:01 | DI.VRAD_ITS ---
PROCEDURE INFORMATION: Exam: CTA Abdominal Aorta and Bilateral Lower Extremities (Run-off) With Contrast Exam date and time: 10/24/2023 3:38 PM Age: 52 years old Clinical indication: Other: Ischemic toes TECHNIQUE: Imaging protocol: Computed tomographic angiography of the of the abdominal aorta, pelvis and bilateral lower extremities with contrast. 3D rendering (Not supervised by radiologist): MIP and/or 3D reconstructed images were created by the technologist. COMPARISON: MR LOWER EXTREMITY LT WO/W 10/23/2023 11:43 AM FINDINGS: Aorta: Normal caliber abdominal aorta and proximal common iliac arteries with calcified atherosclerosis. Celiac trunk and mesenteric arteries: Narrow origin of celiac,likely median arcuate ligament compression with slight poststenotic dilatation. Mild calcified atherosclerosis at vessel origin. Mild calcified atherosclerosis at origin of SMA without significant stenosis. Probable calcified and noncalcified plaque at origin of PAUL which may produce moderate stenosis. Renal arteries: Mild disease at origin of bilateral renal arteries which appear patent. Lower extremity arteries: Mild calcified atherosclerosis of the bilateral common iliac arteries. Mild calcified atherosclerosis of the bilateral external iliac arteries. Moderate calcified atherosclerosis of the bilateral internal iliac arteries and branch vessels. Moderate disease the bilateral profundus arteries. Mild calcified atherosclerosis of the bilateral common femoral arteries. Moderate calcified atherosclerosis of bilateral femoral arteries. Gkls-[id number] bilateral calcified atherosclerosis of the above the knee and at the knee popliteal artery and moderate calcified atherosclerosis of the below the knee popliteal artery and trifurcation. Dense calcified atherosclerosis of the calf vessels bilaterally, markedly limiting assessment of vessel patency. Bilaterally, dorsalis pedis arteries appear patent. Liver: Liver morphology with prominent left and caudate lobes suggests fibrosis. Hepatic steatosis is likely. No mass. Diaphragm: Right hemidiaphragm elevation. Gallbladder and biliary ducts: Contracted gallbladder without radiodense stones or adjacent inflammatory changes. No biliary ductal dilatation. Pancreas: The pancreas is unremarkable. Spleen: The spleen is unremarkable. Top-normal sized spleen, 12.9 cm craniocaudad. Adrenal glands: The adrenal glands are unremarkable. Kidneys and ureters: No hydronephrosis or nephrolithiasis. Nonspecific perinephric fat stranding. Stomach and bowel: Decompressed stomach. No evidence of bowel obstruction. No pericolonic inflammatory stranding. Diverticulosis without diverticulitis. Appendix: Normal appendix. Urinary bladder: No focal wall thickening of the urinary bladder. Reproductive: Nonenlarged prostate Intraperitoneal space: Unremarkable. No free air. No significant fluid collection. Lymph nodes: See Soft tissues finding. Bones/joints: Degenerative change of the hips Soft tissues: Bilateral fat containing inguinal hernias. Small left and very small right fat containing inguinal hernias.(. Bilateral lower extremity subcutaneous soft tissue stranding, may represent lymphedema, cellulitis, trauma. IMPRESSION: Dense calcified atherosclerosis of the calf vessels bilaterally, markedly limiting assessment of vessel patency. Bilaterally, dorsalis pedis arteries appear patent. Moderate calcified atherosclerosis of the bilateral internal iliac arteries, bilateral femoral arteries, trifurcation and below the knee popliteal arteries. Estimate moderate stenosis at origin of the inferior mesenteric artery. Nonspecific perinephric fat stranding. This may indicate concurrent urinary tract pathology or represent sequela of prior inflammation or infection. Correlate with urinalysis Dictated and Authenticated by: Ayala Bates MD. Ordering:CHANG Dillon MD
[2023-10-24] MEDS: Benzonatate 100 MG CAP PO (20:33)
[2023-10-24] MEDS: Simvastatin 40 MG TAB PO (20:34)
[2023-10-25] MEDS: PIPERACILLIN/TAZO 4.5 GM in Normal Saline 100 ML IVPB ×4 (02:15→19:46)
[2023-10-25 02:26] VITALS: BP 146/77; PULSE 83; RESP 18; TEMP 37.2; O2SAT 97
[2023-10-25 02:28] VITALS: TEMP 37.2
[2023-10-25] MEDS: Benzonatate 100 MG CAP PO ×3 (05:06→20:54)
[2023-10-25 06:57] LABS: Abs Immature Grans 0.05 10^3/uL (0.0-0.06); Absolute Basophil Count 0.04 10^3/uL (0.0-0.2); Absolute Eosinophil Count 0.06 10^3/uL (0.0-0.7); Absolute Lymphocyte Count 0.97 10^3/uL (1.2-3.4); Absolute Monocyte Count 0.99 10^3/uL (0.1-0.8); Absolute Neutrophil Count 7.08 10^3/uL (1.2-6.7); Basophils % 0.4 %; Eosinophils % 0.7 %; HCT 31.9 % (40.0-50.0); Immature Grans % 0.5 %; Lymphocytes % 10.6 %; MCH 28.9 pg (27.0-33.0); MCHC 34.5 % (32.0-36.0); MCV 84 fL (80-95); MPV 10.4 fL (8.0-11.0); Monocytes % 10.8 %; Platelet Count 229 10^3/uL (130-400); RBC 3.81 10^6/uL (4.36-5.78); RDW 12.4 % (11.8-14.1); RDW-SD 37.8 fL; WBC 9.19 10^3/uL (4.4-10.8)
[2023-10-25 07:17] LABS: Anion Gap 11.9 mmol/L (3-11); BUN 19 mg/dL (7-18); CO2 23.1 mmol/L (21.0-32.0); CREATININE 1.8 mg/dL (0.70-1.30); Calcium 8.6 mg/dL (8.5-10.1); Chloride 100 mmol/L (98-107); Estimated GFR 44.18 (mL/min/1.73m2); Glucose 300 mg/dL (74-106); Potassium 3.5 mmol/L (3.5-5.1); Sodium 135 mmol/L (136-145)
[2023-10-25] MEDS: Normal Saline Flush 10 ML SYR IVP ×4 (07:52→20:23)
[2023-10-25] MEDS: Insulin Aspart 300 UNITS/3 ML PEN SC ×4 (07:53→22:11)
[2023-10-25 07:57] VITALS: BP 165/64; PULSE 95; RESP 18; TEMP 37.9; O2SAT 97
[2023-10-25] MEDS: Lactobacillus Acidophilus CAP 1 CAP PO (08:19)
[2023-10-25] MEDS: Metoprolol 50 MG TAB 100 MG PO ×2 (08:20→19:31)
[2023-10-25] MEDS: Aspirin E.C. 81 MG TABEC PO (08:20)
[2023-10-25] MEDS: Lactated Ringers 1,000 ML 100 ML IV (10:07)
[2023-10-25] MEDS: VANCOMYCIN/WATER (PEG) 1 GM/200 ML BAG IV ×2 (10:13→22:11)
--- NOTE | 2023-10-25 10:27 | PGE_ITS ---
Date of Service Date of service: 10/25/23 Time of Service: 10:27 Assessment and Plan Assessment and plan (1) Sepsis: Status: Resolved Assessment and plan: source left foot cellulitis, hemodynamically stable (2) Cellulitis of left foot: Status: Acute Assessment and plan: ortho consult in ED and [facility] [place] Continue IV antibiotics: Vancomycin and Zosyn Pharmacy dosing vanco Monitor renal function Blood cultures pending Third and fourth toes blue, initial concern for blue toe syndrome. aspirin 81 mg daily CTA with runoff to evaluate for possible atheroembolic event consider vascular surgery consultation if appropriate (3) Hypomagnesemia: Status: Acute Assessment and plan: received mag 2 grams IVPB, will repeat level in am. continue oral magnesium and potassium supplementation and follow (4) Diabetes: Status: Chronic Assessment and plan: Gluc AC and HS with SSI coverage Cr 1.5 baseline uniknown but reports not CKD ; will start slow IV hydration BMP in AM (5) ETOH abuse: Status: Chronic Assessment and plan: no signs of withdrawal CIWA scoring Q4 with VS If positive scoring f/u with cardiopulmonary technician and eeg tech provider for PRN phenobarbital dosing can likely dc later today or tomorrow if remains asymptomatic (6) On deep vein thrombosis (DVT) prophylaxis: Status: Acute Assessment and plan: On LMWH SC (7) Discharge planning issues: Status: Acute Assessment and plan: CM to f/u Discussed with Dr Barbour Subjective Subjective Patient reports: no new complaints, tolerating liquids well, tolerating a regular diet and afebrile Interval history since last seen: improving erythema, no pain in toes, warm to touch Exam Narrative Exam Narrative: Morbidly obese male appearing older than stated age in no acute distress sitting in a recliner head is atraumatic face is flushed eyes nonicteric noninjected oral mucosas moist neck is supple full range of motion neurologic he is awake alert oriented no focal deficits skin is pink warm dry well-perfused cardiovascular regular rate and rhythm his respirations even and unlabored. Plantar aspect of left foot with decreased erythema within the skin markings ischemic tissue over fourth metatarsal remains consistent when compared with yesterday, third and fourth toe remain blue, warm to touch, no significant pain. No increased pain out of proportion good pulses palpated foot is warm to touch sensation intact Objective Last Vital Signs Temp 37.9 C H 10/25/23 07:57 Pulse 95 H 10/25/23 07:57 Resp 18 10/25/23 07:57 BP 165/64 H 10/25/23 07:57 Pulse Ox 97 10/25/23 07:57 Laboratory Results - last 24 hr 10/24/23 10/25/23 05:59 06:30 WBC 9.19 RBC 3.81 L Hgb 11.0 L Hct 31.9 L MCV 84 MCH 28.9 MCHC 34.5 RDW 12.4 Plt Count 229 MPV 10.4 Immature Gran % 0.5 Neutrophils % 77.0 Lymphocytes % 10.6 Monocytes % 10.8 Eosinophils % 0.7 Basophils % 0.4 Nucleated RBC % 0.0 Absolute Neutrophils 7.08 H Absolute Lymphocytes 0.97 L Absolute Monocytes 0.99 H Absolute Eosinophils 0.06 Absolute Basophils 0.04 Sodium 135 L Potassium 3.5 Chloride 100 Carbon Dioxide 23.1 Anion Gap 11.9 H BUN 19 H Creatinine 1.8 H Est GFR (CKD-EPI 2020) 44.18 Glucose 300 H Calcium 8.6 Triglycerides 179 H Total Cholesterol 132 LDL Cholesterol, Calc 63 HDL Cholesterol 34 L Add-On Test Request DONE PAWSS Have you Been Recently Intoxicated or Drunk Within the Last 30 days?: No Have you Ever Experienced Previous Episodes of Alcohol Withdrawal?: No Have you ever Experienced Withdrawal Seizures?: No Have you ever Experienced Delirium Tremens(DT)s?: No Have you ever undergone Alcohol Rehabilitation Treatment (i.e, inpt ot outpatient treatment programs)?: No Have you ever Experienced Blackouts?: No Have you ever Combined Alcohol with other Downers within the last 90 days?: No Have you ever Combined Alcohol with any other Substance of Abuse during the last 90 days?: No Positive Blood Alcohol level on Presentation? [PCS.BAL]: No Evidence of Increased Autonomic Activity (i.e. HR>120, tremor, sweating, agitation, nausea)?: No Result: 0 Time Spent with Patient Time Spent with Patient: 35-49 minutes Time was spent: preparing to see the patient(eg.review tests), obtaining and/or reviewing separately otained hiistory, ordering medications,tests, procedures, indepentently interpreting results and counseling the patient
[2023-10-25] MEDS: Potassium Chloride 20 MEQ TABCR PO ×2 (15:09→19:32)
[2023-10-25] MEDS: Magnesium Gluconate 500 MG TAB PO (15:09)
[2023-10-25 15:15] VITALS: BP 135/57; PULSE 91; RESP 18; TEMP 37.5; O2SAT 97
[2023-10-25] MEDS: Enoxaparin 40 MG/0.4 ML SYR SC (17:03)
[2023-10-25] MEDS: Simvastatin 40 MG TAB PO (19:31)
[2023-10-25] MEDS: Acetaminophen 325 MG TAB PO (19:45)
[2023-10-25 20:44] VITALS: BP 150/69; PULSE 98; RESP 20; TEMP 38.3; O2SAT 96
[2023-10-26 00:17] VITALS: TEMP 37
[2023-10-26] MEDS: PIPERACILLIN/TAZO 4.5 GM in Normal Saline 100 ML IVPB ×3 (01:47→15:12)
[2023-10-26] MEDS: Lactated Ringers 1,000 ML 100 ML IV ×2 (03:23→13:50)
[2023-10-26 06:16] LABS: Abs Immature Grans 0.11 10^3/uL (0.0-0.06); Absolute Basophil Count 0.05 10^3/uL (0.0-0.2); Absolute Eosinophil Count 0.14 10^3/uL (0.0-0.7); Absolute Lymphocyte Count 1.15 10^3/uL (1.2-3.4); Absolute Monocyte Count 1.14 10^3/uL (0.1-0.8); Absolute Neutrophil Count 7.14 10^3/uL (1.2-6.7); Basophils % 0.5 %; Eosinophils % 1.4 %; HCT 31.3 % (40.0-50.0); HGB 10.8 g/dL (13.5-17.5); Immature Grans % 1.1 %; Lymphocytes % 11.8 %; MCH 28.8 pg (27.0-33.0); MCHC 34.5 % (32.0-36.0); MCV 84 fL (80-95); MPV 9.7 fL (8.0-11.0); Monocytes % 11.7 %; Neutrophils % 73.5 %; Platelet Count 242 10^3/uL (130-400); RBC 3.75 10^6/uL (4.36-5.78); RDW 12.4 % (11.8-14.1); RDW-SD 37.4 fL; WBC 9.73 10^3/uL (4.4-10.8)
[2023-10-26 06:41] LABS: ALT 15 U/L (16-63); AST 12 U/L (15-37); Albumin 1.8 g/dL (3.4-5.0); Alkaline Phosphatase 66 U/L (46-116); BUN 22 mg/dL (7-18); CREATININE 2.5 mg/dL (0.70-1.30); Calcium 8.8 mg/dL (8.5-10.1); Chloride 101 mmol/L (98-107); Estimated GFR 29.79 (mL/min/1.73m2); Glucose 252 mg/dL (74-106); Magnesium 1.8 mg/dL (1.8-2.4); Potassium 4.1 mmol/L (3.5-5.1); Sodium 136 mmol/L (136-145); Total Protein 6.5 g/dL (6.4-8.2)
[2023-10-26 06:54] LABS: Vancomycin, Random 24.2 ug/mL
[2023-10-26 07:17] VITALS: BP 136/58; PULSE 88; RESP 20; TEMP 37.4; O2SAT 98
[2023-10-26] MEDS: Aspirin E.C. 81 MG TABEC PO (07:51)
[2023-10-26] MEDS: Metoprolol 50 MG TAB 100 MG PO (07:51)
[2023-10-26] MEDS: Potassium Chloride 20 MEQ TABCR PO (07:51)
[2023-10-26] MEDS: Lactobacillus Acidophilus CAP 1 CAP PO (07:51)
[2023-10-26] MEDS: Normal Saline Flush 10 ML SYR IVP (07:52)
[2023-10-26] MEDS: Magnesium Gluconate 500 MG TAB PO (07:52)
[2023-10-26] MEDS: Insulin Aspart 300 UNITS/3 ML PEN SC ×3 (08:02→17:11)
--- NOTE | 2023-10-26 09:26 | PGE_ITS ---
Date of Service Date of service: 10/26/23 Time of Service: 09:26 Assessment and Plan Assessment and plan (1) Sepsis: Status: Resolved Assessment and plan: source left foot cellulitis, hemodynamically stable (2) Cellulitis of left foot: Status: Acute Assessment and plan: ortho consult in ED and [facility] podiatry consult Continue IV antibiotics: Vancomycin and Zosyn Pharmacy dosing vanco Monitor renal function Blood cultures pending Third and fourth toes blue, initial concern for blue toe syndrome. aspirin 81 mg daily CTA with runoff to evaluate for possible atheroembolic event consider vascular surgery consultation if appropriate -Poor visualization of vessels Podaitry recommends transfer to [facility] for I do recommend consultation with vascular- PT is not quite strong I also suspect microvascular disease. Will have to watch and wait for demarcation prior to any amputation. (3) Hypomagnesemia: Status: Acute Assessment and plan: received mag 2 grams IVPB, will repeat level in am. continue oral magnesium and potassium supplementation and follow (4) Diabetes: Status: Chronic Assessment and plan: Gluc AC and HS with SSI coverage Cr 1.5 baseline uniknown but reports not CKD ; will start slow IV hydration BMP in AM (5) ETOH abuse: Status: Chronic Assessment and plan: no signs of withdrawal CIWA scoring Q4 with VS If positive scoring f/u with luncheonette operator provider for PRN phenobarbital dosing can likely dc later today or tomorrow if remains asymptomatic (6) On deep vein thrombosis (DVT) prophylaxis: Status: Acute Assessment and plan: On LMWH SC (7) Discharge planning issues: Status: Acute Assessment and plan: CM to f/u Discussed with Dr Barbour (8) [facility] (acute kidney injury): Status: Acute Assessment and plan: Cr 2.5 from 1.8 Patient is on LR at 100cc/hr up to 150 cc/hour Also on Vancomycin and Zosyn Subjective Subjective Patient reports: tolerating liquids well, tolerating a regular diet (decreased po intake ), voiding w/o difficulty and flatus; denies feels better, diarrhea, nausea, vomiting, shortness of breath or fever Exam Narrative Exam Narrative: Constitutional The patient is sitting inrecliner with legs elevated HENMT: Facial structures with normal appearance Neuro:alert and oriented X3 Resp: Clear lung bilaterally but shallow breathing Cardio: regular rhythm, S1, S2, no murmur, bilateral radial and dorsalis pedis pulses are positive, edema to left LE > right LE GI: Abdomen is not distended, soft and non tender, bowel sounds are present : Negative Costovertebral angle tenderness, no bladder distension Integumentary: ulcer to the plantar aspect of the left foot at the 3rd toe level initially with central wound with opening from staple on the sole of the foot. Now cyanosis to 4th left toe also,poor if any cap refill to the affected left toes Extremities: strength 5/5 to bilateral lower and upper extremities Psych: RASS 0, congruent mood and normal affect. Objective Last Vital Signs Temp 37.4 C 10/26/23 07:17 Pulse 88 10/26/23 07:17 Resp 20 10/26/23 07:17 BP 136/58 L 10/26/23 07:17 Pulse Ox 98 10/26/23 07:17 Laboratory Results - last 24 hr 10/26/23 10/26/23 06:05 06:05 WBC 9.73 RBC 3.75 L Hgb 10.8 L Hct 31.3 L MCV 84 MCH 28.8 MCHC 34.5 RDW 12.4 Plt Count 242 MPV 9.7 Immature Gran % 1.1 Neutrophils % 73.5 Lymphocytes % 11.8 Monocytes % 11.7 Eosinophils % 1.4 Basophils % 0.5 Nucleated RBC % 0.0 Absolute Neutrophils 7.14 H Absolute Lymphocytes 1.15 L Absolute Monocytes 1.14 H Absolute Eosinophils 0.14 Absolute Basophils 0.05 Sodium 136 Potassium 4.1 Chloride 101 Carbon Dioxide 23.0 Anion Gap 12.0 H BUN 22 H Creatinine 2.5 H Est GFR (CKD-EPI 2020) 29.79 Glucose 252 H Calcium 8.8 Magnesium 1.8 Cancelled Total Bilirubin 0.50 AST 12 L ALT 15 L Alkaline Phosphatase 66 Total Protein 6.5 Albumin 1.8 L Random Vancomycin 24.2 PAWSS Have you Been Recently Intoxicated or Drunk Within the Last 30 days?: No Have you Ever Experienced Previous Episodes of Alcohol Withdrawal?: No Have you ever Experienced Withdrawal Seizures?: No Have you ever Experienced Delirium Tremens(DT)s?: No Have you ever undergone Alcohol Rehabilitation Treatment (i.e, inpt ot outpatient treatment programs)?: No Have you ever Experienced Blackouts?: No Have you ever Combined Alcohol with other Downers within the last 90 days?: No Have you ever Combined Alcohol with any other Substance of Abuse during the last 90 days?: No Positive Blood Alcohol level on Presentation? [PCS.BAL]: No Evidence of Increased Autonomic Activity (i.e. HR>120, tremor, sweating, agitation, nausea)?: No Result: 0
--- NOTE | 2023-10-26 09:46 | W.PM.PROGNOT ---
Date of Service Date of service: 10/26/23 Time of Service: 09:47 Objective Last Vital Signs Temp 37.4 C 10/26/23 07:17 Pulse 88 10/26/23 07:17 Resp 20 10/26/23 07:17 BP 136/58 L 10/26/23 07:17 Pulse Ox 98 10/26/23 07:17 Laboratory Results - last 24 hr 10/26/23 10/26/23 06:05 06:05 WBC 9.73 RBC 3.75 L Hgb 10.8 L Hct 31.3 L MCV 84 MCH 28.8 MCHC 34.5 RDW 12.4 Plt Count 242 MPV 9.7 Immature Gran % 1.1 Neutrophils % 73.5 Lymphocytes % 11.8 Monocytes % 11.7 Eosinophils % 1.4 Basophils % 0.5 Nucleated RBC % 0.0 Absolute Neutrophils 7.14 H Absolute Lymphocytes 1.15 L Absolute Monocytes 1.14 H Absolute Eosinophils 0.14 Absolute Basophils 0.05 Sodium 136 Potassium 4.1 Chloride 101 Carbon Dioxide 23.0 Anion Gap 12.0 H BUN 22 H Creatinine 2.5 H Est GFR (CKD-EPI 2020) 29.79 Glucose 252 H Calcium 8.8 Magnesium 1.8 Cancelled Total Bilirubin 0.50 AST 12 L ALT 15 L Alkaline Phosphatase 66 Total Protein 6.5 Albumin 1.8 L Random Vancomycin 24.2 PAWSS Have you Been Recently Intoxicated or Drunk Within the Last 30 days?: No Have you Ever Experienced Previous Episodes of Alcohol Withdrawal?: No Have you ever Experienced Withdrawal Seizures?: No Have you ever Experienced Delirium Tremens(DT)s?: No Have you ever undergone Alcohol Rehabilitation Treatment (i.e, inpt ot outpatient treatment programs)?: No Have you ever Experienced Blackouts?: No Have you ever Combined Alcohol with other Downers within the last 90 days?: No Have you ever Combined Alcohol with any other Substance of Abuse during the last 90 days?: No Positive Blood Alcohol level on Presentation? [PCS.BAL]: No Evidence of Increased Autonomic Activity (i.e. HR>120, tremor, sweating, agitation, nausea)?: No Result: 0
--- NOTE | 2023-10-26 10:14 | W.PODCONSULT ---
Date of service: 10/26/23 Time of Service: 08:30 Assessment and Plan Assessment and plan (1) Puncture wound of left foot: Status: Acute (2) Cellulitis of left foot: Status: Acute (3) [facility] (acute kidney injury): Status: Acute (4) Sepsis: Status: Resolved (5) Gangrene of left foot: Status: Acute (6) Atherosclerosis of artery of both lower extremities: Status: Acute Assessment and plan: Patient was seen and evaluated bedside today. Chart was reviewed. On examination, he has gangrenous changes to the left foot which duskiness to the left fourth and third toes. He does have a puncture wound with a staple removed at his primary care doctor's office recently. Patient has failed oral antibiotics. He is currently on IV antibiotics the cellulitis appears to be improving as noted with markings done in the ER. X-ray findings do not demonstrate any evidence for osteomyelitis at this time or radiopaque foreign object. MRI fails to demonstrate any fluid collection to suggest an abscess and also negative for osteomyelitis. I do suspect an underlying abscess which may have been missed by MRI. I discussed this in detail with the patient today. I recommended an exploratory I&D to further rule out an abscess. Patient was advised that he likely has microvascular disease and thus the gangrenous changes. He was advised that he is at risk for limb loss at this time. I do recommend consultation with vascular. Patient also has unknown tetanus status and recommend a tetanus booster. I discussed the above in detail with the medicine team. I recommend consultation with vascular. He will benefit from consultation with infectious disease as well as endocrinology. As per medicine, [facility] [place] not have [facility] availability. Will check with [facility]. I will plan for an exploratory I&D in the OR for tomorrow. Patient to be placed n.p.o. midnight tonight. If the patient is transferred to [facility] or [facility] prior to that I would recommend a consultation with podiatry upon transfer we will then take over care as needed. Will continue to follow. Thank you for allowing me to participate in this patient's care History of Present Illness Narrative: This is a diabetic male patient consulted for ischemic changes to the left foot. 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 Then on Thursday, he noticed sharp pain in his calf and went to his primary care provider. He states that at his primary's office he was noted to have some bleeding at the bottom of his socks and upon inspection of the left foot there was a staple which was removed from the left foot and patient was given antibiotics. He states that subsequently he noticed some worsening and then presented to the ER. States that the pain is improving. He does not recall what his last A1c is. Review of Systems Cardiovascular Comments: Nonpalpable PT pulse. Edema noted bilaterally left foot worse. Ischemic changes to the left third and fourth toes Integumentary/Breasts Comments: Puncture wound to the plantar aspect of the left fourth metatarsal head, gangrenous changes noted to the left foot PFSH All Active Problems (Updated 10/26/23 @ 10:28 by Lydia Ellsworth DPM) Atherosclerosis of artery of both lower extremities (Acute) Gangrene of left foot (Acute) [facility] (acute kidney injury) (Acute) Hypomagnesemia (Acute) ETOH abuse (Chronic) Discharge planning issues (Acute) On deep vein thrombosis (DVT) prophylaxis (Acute) Diabetes (Chronic) Puncture wound of left foot (Acute) Cellulitis of left foot (Acute) Social History Smoking/Tobacco Use Status: Never Smoking risk assessment performed?: Yes Drug use: Never Housing: house Do you feel safe in your relationship?: Yes Exam Extrem Other: Left lower extremity physical exam: Derm: Gangrenous changes, puncture wound, skin slough with periwound erythema and edema as well as warmth noted to the left forefoot extending from approximately the mid metatarsal level of the second going distal towards the left fourth toe, there is duskiness noted to the left third and fourth toes, left third fourth toes appear cool the rest of the foot feels warm to touch. Cellulitis does appear to be receding as noted with demarcation from the ER, no crepitus no fluctuance no bogginess appreciated at this time no malodor noted no palpable abscess however an underlying deep abscess cannot be ruled out. Vascular: DP pulses palpable and dopplerable however PT pulse is nonpalpable to the left slightly dopplerable PT. CFT slightly delayed. MSK: No pain on palpation pes planus foot type all toes present Neuro: Light touch sensation noted to be absent Results Last Vital Signs Temp 99.3 F 10/26/23 07:17 Pulse 88 10/26/23 07:17 Resp 20 10/26/23 07:17 BP 136/58 L 10/26/23 07:17 Pulse Ox 98 10/26/23 07:17 Labs 10/26/23 06:05 10/26/23 06:05 Labs: Laboratory Results - last 24 hr 10/26/23 10/26/23 06:05 06:05 WBC 9.73 RBC 3.75 L Hgb 10.8 L Hct 31.3 L MCV 84 MCH 28.8 MCHC 34.5 RDW 12.4 Plt Count 242 MPV 9.7 Immature Gran % 1.1 Neutrophils % 73.5 Lymphocytes % 11.8 Monocytes % 11.7 Eosinophils % 1.4 Basophils % 0.5 Nucleated RBC % 0.0 Absolute Neutrophils 7.14 H Absolute Lymphocytes 1.15 L Absolute Monocytes 1.14 H Absolute Eosinophils 0.14 Absolute Basophils 0.05 Sodium 136 Potassium 4.1 Chloride 101 Carbon Dioxide 23.0 Anion Gap 12.0 H BUN 22 H Creatinine 2.5 H Est GFR (CKD-EPI 2020) 29.79 Glucose 252 H Calcium 8.8 Magnesium 1.8 Cancelled Total Bilirubin 0.50 AST 12 L ALT 15 L Alkaline Phosphatase 66 Total Protein 6.5 Albumin 1.8 L Random Vancomycin 24.[address] scan - chest: image reviewed Additional studies: Patient Name: Kenisha Nelson Unit #: [id number] Loc: ER Ordering Provider: Pankaj Yousif M.D. Primary Care Provider: Nilo Thacker Date of Exam: 10/23/23 Sex: M Admission Date: 10/23/23 : 1970 Age: 52 Exam(s) MR LOWER EXTREMITY LT WO/W EXAM: MR LOWER EXTREMITY LT WO/W CLINICAL HISTORY: Diabetic foot infection. TECHNIQUE: Multiplanar multisequence MRI was performed. CONTRAST MATERIAL: IV Contrast: 20 mL of Dotarem contrast administered. COMPARISON: No exams were available for comparison FINDINGS: BONES/JOINTS: No evidence of fracture. No evidence of bone lesion. No marrow edema is present to suggest osteomyelitis. LIGAMENTS: The medial and lateral collateral ligaments are intact. MUSCULOTENDINOUS STRUCTURES: Visualized portion of the planar fascia is unremarkable. The visualized intrinsic muscles and tendons of the foot are unremarkable. SOFT TISSUES: There is edema seen in the soft tissues of the foot but no focal fluid collection is seen to suggest an abscess. There is a small defect in the skin on the plantar surface of the foot near the region of the 3rd metatarsophalangeal joint (series [id number], image 19). This may represent the patient's wound site. ENHANCEMENT: No suspicious enhancement identified. OTHER FINDINGS: None. IMPRESSION: 1. No findings to suggest osteomyelitis or abscess. 2. Edema seen in the soft tissues of the foot which may represent a cellulitis. 3. Small skin defect on the plantar surface of the foot near the region of the 3rd metatarsophalangeal joint which may represent the patient's wound site. Imaging Studies: Patient Name: Kenisha Nelson Unit #: [id number] Loc: ER Ordering Provider: Pankaj Yousif M.D. Status: [facility] Primary Care Provider: Nilo Thacker Date of Exam: 10/23/23 Sex: M Admission Date: 10/23/23 : 1970 Age: 52 Exam(s) XR FOOT LT COMPLETE EXAM: CLINICAL HISTORY: ? foreign body. TECHNIQUE: 2D digital imaging was performed of the left foot. Three images were obtained. AP, oblique and lateral views were obtained. COMPARISON: No exams were available for comparison FINDINGS: BONES: No acute fracture is present. No bony destructive lesion is seen. Pes planus. There is an enthesophyte at the posterior calcaneus. The distal aspect of a sideplate is seen in the distal fibula. JOINTS: No dislocation present. Degenerative changes are present particularly at the talonavicular joint. SOFT TISSUE: There is soft tissue swelling of the foot. No radiopaque foreign body is identified. Extensive vascular calcifications are present. IMPRESSION: No radiopaque foreign body is identified.
--- NOTE | 2023-10-26 10:55 | DSE_ITS ---
Date of service: 10/26/23 Time of Service: 10:55 DS: Diagnosis Discharge Diagnosis (1) Puncture wound of left foot: Status: Acute (2) Cellulitis of left foot: Status: Acute (3) [facility] (acute kidney injury): Status: Acute (4) Sepsis: Status: Resolved (5) Gangrene of left foot: Status: Acute (6) Atherosclerosis of artery of both lower extremities: Status: Acute Discharge Plan Disposition Patient Disposition: Transfer-Acute Inpatient Care Specific Acute Inpt Facility: [facility] Condition: Deteriorating Discharge Details Reason For Visit: cellulitis left foot Admit Date/Time: 10/23/23 15:56 Admit Provider: Paulino Barbour Attending Provider: Paulino Barbour Primary Care Provider: Nilo Thacker Hospital Course Hospital Course: This 48 years old male patient with past medical history of non-insulin dependent diabetes, EtOH abuse with no drinking for over a week presented to the ED at [facility] on 10/23/2023 for evaluation of left foot pain The patient reported having been seen 2 days prior to his visit to the ED by his primary care provider at which point the staple was removed from the bottom of his left foot with initiation of oral levofloxacin. The patient reported noticing increased redness streaking up onto the dorsal aspect of his left foot with a bluish colored third toe. The patient reported a fever the night prior as well as decreased oral intake over the past several days. At the time the patient denied falls, nausea or vomiting. In the ED a discolored left foot ulcer was noticed on the sole of his foot. Labs in the ED were unremarkable except for WBC of 12.77 and an H&H of 12.5 and 35.6. ESR was 52 and lactate 1.8, sodium 133 BUN 25 with a creatinine of 1.5, CRP of 23.74. The patient received Librium 50 oral in the ED prior to MRI due to anxiety with low suspicion of alcohol withdrawal. MRI of the left foot showed no abscess or osteomyelitis but soft tissue edema most likely representing cellulitis. X-ray showed no fracture or foreign body in the left foot. The orthopedic services were consulted and advised for podiatry consult but podiatry was not available onsite on the day of presentation. Orthopedist from [facility] Dr. Miles Dee advised for hospitalization and IV antibiotics. The hospitalist admitted the patient to the medical surgical floor were vancomycin and Zosyn IV were continued. Lisinopril was held on the premises of [facility]. On subsequent days the blue discoloration extended to the fourth toe of the left foot with subtle erythema in the dorsal aspect of the foot erythema remaining the same. Blood cultures showed no growth at 72 and 48 hours. The patient continued to develop temperatures around 38 Celsius every afternoon which responded to acetaminophen. Podiatry was consulted and noted gangrenous changes to the left foot with duskiness to the left fourth and third toes with a puncture wound from a staple removal at his primary care doctor's office prior to arrival. Podiatry mostly suspect microvascular disease with with the possibility of limb loss and discussed this with the patient. Also recommended for vascular consult as well as with infectious disease and endocrinology. In the event of no capacity to take the patient and exploratory I&D was plan for t he morning. Upon discussion with podiatry the best option would be for the patient to be transferred to [facility]. [facility] vascular Dr. Severino was consulted and recommended transfer to [facility] as the accepting physician. The patient developed a fever this afternoon while on Vanco and Zosyn and seems to respond to acetaminophen. The remained hemodynamically stable, without leukocytosis. Creatinine is up to 2.5 with a BUN of 22 which puts the patient in acute kidney injury. Discussed with Dr. Remy Home Meds and New Rx's Prescriptions: No Action metformin 1,000 mg Tablet 1,000 mg PO DAILY lisinopril 40 mg tablet 40 mg PO DAILY Patient Comments: TAKE 1 TABLET BY MOUTH ONCE DAILY FOR 90 DAYS glyburide 5 mg tablet 5 mg PO DAILY Patient Comments: TAKE 1 TABLET BY MOUTH TWICE DAILY FOR 90 DAYS metoprolol tartrate 100 mg tablet 100 mg PO BID Patient Comments: TAKE 1 TABLET BY MOUTH TWICE DAILY FOR 90 DAYS levofloxacin 500 mg tablet 500 mg PO DAILY Patient Comments: TAKE ONE TABLET BY MOUTH EVERY DAY FOR 10 DAYS simvastatin 40 mg tablet 40 mg PO QPM Patient Comments: TAKE 1 TABLET BY MOUTH ONCE DAILY IN THE EVENING FOR 90 DAYS Discharge Instructions Activity:: Activity as Tolerated Equipment/Supplies:: No Equipment Needed Diet:: As Tolerated Discharge Orders Discharge Orders: Discharge Order (Routine); Ordered 10/26/23 Ordered By: Janina Deal DS: Summary Time Spent with Patient providing and/or coordinating discharge services: Greater than 30 minutes Status at Discharge Functional status at discharge: uses cane/walker Overall status at discharge: patient is not back to baseline Mental Status: mental status grossly normal Speech and Movement: speech and movement normal Mood: congruent mood Affect: normal affect Quality:SDOH Health Related Social Needs: No Data to Display Exam Psych Mental Status: mental status grossly normal Speech and Movement: speech and movement normal Mood: congruent mood Affect: normal affect DS: Data Vitals/I&O Vitals and I&O: Vital Signs Temperature 37.4 C 10/26/23 07:17 Temperature Source Temporal Artery Scan 10/26/23 07:17 Pulse 88 10/26/23 07:17 Pulse Rhythm Regular 10/26/23 07:53 Pulse 84 10/23/23 13:20 Respiratory Rate 20 10/26/23 07:17 Respiratory Effort Normal 10/26/23 07:53 Respiratory Depth Normal 10/26/23 07:53 Respiratory Pattern Normal 10/26/23 07:53 Blood Pressure 136/58 L 10/26/23 07:17 Blood Pressure Mean 81 10/23/23 15:55 Blood Pressure Position Sitting 10/23/23 08:03 Pulse Oximetry 98 10/26/23 07:17 Oxygen Delivery Method Room Air 10/26/23 07:17 Oxygen Flow Rate 0 10/26/23 07:17 Pain Level 0 10/25/23 15:15 Comment pleasant and cooperative with care, call gregory within reach, denies pain 10/26/23 07:17 Intake & Output 10/25/23 10/25/23 10/26/23 11:59 23:59 11:59 Intake Total 1720 / 2150 430 / 2150 1300 / 1300 Output Total 300 / 300 Balance 1720 / 1850 130 / 1850 1300 / 1300 Weight 113.8 kg 113.7 kg Intake: IV 1600 / 1810 210 / 1810 1300 / 1300 Oral 120 / 340 220 / 340 Output: Urine 300 / 300 Other: Urine Color Yellow Yellow Urine Appearance Clear Clear Urine Odor Normal Comment Independent. pT stated that he had a accident. pT was incontinent of urine. Its when he goes into his coughing spells. Independent. Stool Size Moderate Stool Characteristics Soft Voiding Methods Toilet Toilet Toilet Incontinent Data Completed and Pending Labs on day of discharge: Labs from last 24 hours 10/26/23 10/26/23 10/26/23 09:14 06:05 06:05 WBC 9.73 RBC 3.75 L Hgb 10.8 L Hct 31.3 L MCV 84 MCH 28.8 MCHC 34.5 RDW 12.4 Plt Count 242 MPV 9.7 Immature Gran % 1.1 Neutrophils % 73.5 Lymphocytes % 11.8 Monocytes % 11.7 Eosinophils % 1.4 Basophils % 0.5 Nucleated RBC % 0.0 Absolute Neutrophils 7.14 H Absolute Lymphocytes 1.15 L Absolute Monocytes 1.14 H Absolute Eosinophils 0.14 Absolute Basophils 0.05 Sodium 136 Potassium 4.1 Chloride 101 Carbon Dioxide 23.0 Anion Gap 12.0 H BUN 22 H Creatinine 2.5 H Est GFR (CKD-EPI 2020) 29.79 Glucose 252 H Calcium 8.8 Magnesium Cancelled 1.8 Total Bilirubin 0.50 AST 12 L ALT 15 L Alkaline Phosphatase 66 Total Protein 6.5 Albumin 1.8 L Random Vancomycin 24.2 Add-On Test Request Pending Preliminary micro results at discharge 10/24/23 01:45 Blood Culture - Preliminary Blood NO GROWTH 48 HOURS 10/24/23 02:00 Blood Culture - Preliminary Blood NO GROWTH 48 HOURS 10/23/23 09:05 Blood Culture - Preliminary Blood NO GROWTH 48 HOURS 10/23/23 08:49 Blood Culture - Preliminary Blood NO GROWTH 48 HOURS PFSH All Active Problems (Updated 10/26/23 @ 17:37 by Janina Deal APRN) Atherosclerosis of artery of both lower extremities (Acute) Gangrene of left foot (Acute) [facility] (acute kidney injury) (Acute) Hypomagnesemia (Acute) ETOH abuse (Chronic) Discharge planning issues (Acute) On deep vein thrombosis (DVT) prophylaxis (Acute) Diabetes (Chronic) Puncture wound of left foot (Acute) Cellulitis of left foot (Acute) Social History Smoking/Tobacco Use Status: Never Smoking risk assessment performed?: Yes Drug use: Never Housing: house Do you feel safe in your relationship?: Yes Time Spent with Patient Time Spent with Patient: >85 minutes Time was spent: preparing to see the patient(eg.review tests), obtaining and/or reviewing separately otained hiistory, ordering medications,tests, procedures, referring, communicating with other health care transitions nurse, indepentently interpreting results, counseling the patient and care coordination
--- NOTE | 2023-10-26 11:26 | CMPROGNOTE_ITS ---
Date of service: 10/26/23 Time of Service: 11:26 Care Management Progress Note Progress Note Text Progress Note Text: Kenisha was sitting up in bed when CM met with him. He has been told by the provider that he has been [place] [facility] [place] [facility] [place] and is waiting for an available bed. He anticipates transfer today or tomorrow. JANNET was able to complete advanced directives with Paulino. They were faxed to [employer] [place] [employer], scanned into his chart and Paulino was given the original as well as 4 copies for his health care agents. JANNET also faxed a letter to Paulino' employer informing them of his hospitalization and plan for transfer [place] [facility] Discharge Potential Discharge Needs: PCP F/U Appt Anticipated Barriers to Discharge: Bed availability ([place]ing a [place] [facility] Patient/Family Education Needs: Review discharge instructions, discuss Ask Me Three Transportation: EMS (Kenisha has been accepted for transfer [place] [facility] [place] a [place] Plan: Kenisha will likely be transferred to [facility] [place] a bed becomes available either later today or tomorrow. He will follow up with their providers and plan of care. Transportation will be via EMS coordinated by the nursing powersaw supervisor. CM will continue to follow. SDOH(Care Management) Screening Will the Patient Participate in the Screening?: Yes Do you worry about having a steady place to live?: no Problems where you live: no known problems In the past 12 months, have you had to go without electric, gas, oil or water in your home?: no Have you or anyone in your house had to go without enough food to eat?: no Has lack of transportation kept you from medical appointments or from doing things needed for daily living?: no Has anyone in your support network made you feel unsafe for any reason?: no
[2023-10-26 11:55] LABS: Lab Add On Test DONE
[2023-10-26 12:09] LABS: Hemoglobin A1C 10.8 % (<5.7)
[2023-10-26] MEDS: Tetanus & Diphtheria Tox,ADULT 0.5 ML VIAL IM (13:00)
[2023-10-26 15:27] VITALS: BP 142/60; PULSE 80; RESP 17; TEMP 37.4; O2SAT 97
--- NOTE | 2023-10-26 16:17 | PHACLINREV_ITS ---
Pharmacy Admission Review Admission Clinical Review Admission Pharmacy Review: Atherosclerosis of artery of both lower extremities (Acute) Gangrene of left foot (Acute) EDEN (acute kidney injury) (Acute) Hypomagnesemia (Acute) Discharge planning issues (Acute) On deep vein thrombosis (DVT) prophylaxis (Acute) Puncture wound of left foot (Acute) Cellulitis of left foot (Acute) No Known Allergies Allergy (Unverified 10/23/23 08:04) Resuscitation Status Full Code Height 5 ft 9 in Weight 113.7 kg Pharmacy Admission Review Renal Dosing Renal Dosing: BUN 22 mg/dL (7-18) H 10/26/23 06:05 Creatinine 2.5 mg/dL (0.70-1.30) H 10/26/23 06:05 Medications needing adjustments: Reviewed (CrCl 41.9mL/min) List of meds needing interventions: Current medications are okay Anticoagulation Anticoagulation: Hgb 10.8 g/dL (13.5-17.5) L 10/26/23 06:05 Hct 31.3 % (40.0-50.0) L 10/26/23 06:05 Plt Count 242 10^3/uL (130-400) 10/26/23 06:05 Creatinine 2.5 mg/dL (0.70-1.30) H 10/26/23 06:05 DVT Prophylaxis: Reviewed Medications: Enoxaparin (40mg daily) Relevant Labs Relevant Labs: ESR 52 mm/hr (0-20) H 10/23/23 08:49 Sodium 136 mmol/L (136-145) 10/26/23 06:05 Potassium 4.1 mmol/L (3.5-5.1) 10/26/23 06:05 Chloride 101 mmol/L (98-107) 10/26/23 06:05 Magnesium 1.8 mg/dL (1.8-2.4) 10/26/23 06:05 Magnesium Cancelled 10/26/23 06:05 C-Reactive Protein 23.74 mg/dL (<or=0.5) H 10/23/23 08:49 Electrolytes, C-Reactive P, ESR: Reviewed (Hgb decreased from 11 to 10.8, AST/ALT 12/15) DM Control DM Control: Glucose 252 mg/dL (74-106) H 10/26/23 06:05 Hemoglobin A1c 10.8 % (<5.7) H 10/26/23 06:05 Finger Stick Blood Glucose 339 1352 Finger Stick Blood Glucose 339 1142 Finger Stick Blood Glucose 339 1142 DM Control: Reviewed Insulin Dosing, Diabetic Medication: Has order for SS insulin Cardiac Review Cardiac Review: Blood Pressure 142/60 1527 Blood Pressure 136/58 0717 BP, HR, EF%: Reviewed (BP 142/60, HR WNL) QTc Review QTc: Reviewed (422 from 10/24/23) IV to PO Switch IV Medications: Reviewed (Zosyn) Home Meds Home Med List reviewed: Reviewed Relevent Home Meds Not ordered & why?: glyburide, lisinopril and metformin Will reach out to provider regarding missing home meds if patient is not transferred to [facility] Current Meds Current Medication Order Review: Reviewed Pharmacy Antibiotic Review Relevant Labs: WBC 9.73 10^3/uL (4.4-10.8) 10/26/23 06:05 Temperature 37.4 C Temperature 37.4 C Microbiology 10/23/23 09:05 Blood Culture - Preliminary Blood NO GROWTH 72 HOURS 10/23/23 08:49 Blood Culture - Preliminary Blood NO GROWTH 72 HOURS 10/24/23 01:45 Blood Culture - Preliminary Blood NO GROWTH 48 HOURS 10/24/23 02:00 Blood Culture - Preliminary Blood NO GROWTH 48 HOURS Pharmacy Antibiotic Activity: C/S review and Reviewed, no change Comments: Patient is on Zosyn day day 3 for cellulitis of left foot. Patient had been on vancomycin but was discontinued today. Plan is for patient to be transferred to [facility] either today or tomorrow pending bed availability.
[2023-10-26 17:03] VITALS: TEMP 38.7
[2023-10-26 17:08] VITALS: BP 157/65; PULSE 91; RESP 17; TEMP 38.7; O2SAT 94
[2023-10-26] MEDS: Acetaminophen 325 MG TAB PO (17:15)
[2023-10-26] MEDS: Enoxaparin 40 MG/0.4 ML SYR SC (17:16)
--- NOTE | 2023-10-26 19:00 | NUR.NOTE ---
Nursing Note: Patient [place] be [place] [facility] [place] Report called to JUAN Chatman. Prior to discharge left IV removed, right IV will remain in place. Patient left via ambulance transfer at 1914
== END 2023-10-26 19:15 | disposition short-term general hospital (02) ==
LOC: ER 16:01 → MS 10-25 10:35
PROVIDERS: Nurse Practitioner Acute Care; Podiatrist; Admitting Provider Internal Medicine; Emergency Provider Emergency Medicine; PCP Internal Medicine; Visit Provider Internal Medicine
DX: A41.9 Sepsis, unspecified organism (principal); L03.116 Cellulitis of left lower limb; I70.262 Atherosclerosis of native arteries of extremities with gangrene, left leg; E11.9 Type 2 diabetes mellitus without complications; F10.10 Alcohol abuse, uncomplicated; E83.42 Hypomagnesemia; N17.9 Acute kidney failure, unspecified; S91.332A Puncture wound without foreign body, left foot, initial encounter; E66.01 Morbid (severe) obesity due to excess calories; L97.521 Non-pressure chronic ulcer of other part of left foot limited to breakdown of skin; I70.201 Unspecified atherosclerosis of native arteries of extremities, right leg
CPT/HCPCS: 00123; 36415; 71250; 75635; 80048; 80053; 80061; 85652; 87040; 90471; 90714; 96361; 96365; 96366; 96372; 96375; 96376; 99285; J1650; 73630; 73720; 80202; 83036; 83605; 83735; 85025; 86140; 93005; 93010; 99223; 99232; 99239; G0378; J1815; J2250; J2543; J3372; J3475; J3490; Q9967

== ENCOUNTER 2023-11-10 06:55 | Emergency (ER) | payer BC, SELFPAY ==
[2023-11-10] VITALS (21 sets, daily range): BP systolic 159–217; BP diastolic 63–93; PULSE 79–86; RESP 18; TEMP 36.8; O2SAT 93–97
--- NOTE | 2023-11-10 07:49 | ED.GENADUL_ITS ---
Discharge Plan Disposition Patient Disposition: Home Discharge Details Clinical Impression: Hypoglycemia, Blurring of vision Primary Care Provider: Nilo Thacker ED Provider: Peyton Holder Home Meds and New Rx's Prescriptions: No Action metformin 1,000 mg Tablet 1,000 mg PO DAILY lisinopril 40 mg tablet 20 mg PO DAILY Patient Comments: TAKE 1 TABLET BY MOUTH ONCE DAILY FOR 90 DAYS glyburide 5 mg tablet 5 mg PO DAILY Patient Comments: TAKE 1 TABLET BY MOUTH TWICE DAILY FOR 90 DAYS metoprolol tartrate 100 mg tablet 100 mg PO BID Patient Comments: TAKE 1 TABLET BY MOUTH TWICE DAILY FOR 90 DAYS levofloxacin 500 mg tablet 500 mg PO DAILY Patient Comments: TAKE ONE TABLET BY MOUTH EVERY DAY FOR 10 DAYS simvastatin 40 mg tablet 40 mg PO QPM Patient Comments: TAKE 1 TABLET BY MOUTH ONCE DAILY IN THE EVENING FOR 90 DAYS acetaminophen 325 mg capsule 975 mg PO Q6H PRN amlodipine 10 mg tablet 10 mg PO DAILY Patient Comments: TAKE ONE TABLET BY MOUTH EVERY DAY amoxicillin-pot clavulanate 875-125 mg tablet 1 tab PO BID Patient Comments: TAKE ONE TABLET BY MOUTH TWICE A DAY FOR 14 DAYS aspirin 81 mg tablet,chewable 81 mg PO DAILY Patient Comments: CHEW ONE TABLET BY MOUTH EVERY DAY atorvastatin 40 mg tablet 40 mg PO QPM Patient Comments: TAKE ONE TABLET BY MOUTH EVERY EVENING ferrous sulfate 325 mg (65 mg iron) tablet,delayed release (DR/EC) 325 mg PO DAILY hydromorphone 2 mg tablet 2 mg PO Q6H PRN Patient Comments: TAKE ONE TABLET BY MOUTH EVERY 6 HOURS NEEDED FOR PAIN insulin lispro [Humalog KwikPen Insulin] 100 unit/mL insulin pen 1 sliding scale dose SUBCUT TID Patient Comments: INJECT 0-10 UNITS UNDER THE SKIN THREE TIMES A DAY BEFORE EACH MEAL +MAX 30 UNITS PER DAY+ senna-docusate sodium Tablet 2 tab PO BID insulin lispro 100 unit/mL solution See Rx Instructions subcut Q4H Rx Instructions: 1-6 units subcutaneously every 4 hours per SS. Discharge Instructions Instructions: Low Blood Sugar, Adult ED Additional Instructions: * Decrease the long-acting insulin by 2 units daily * Is his blood sugar before meals is less than 100, do not give the short acting insulin * If his blood sugar is above 140, give the additional doses of insulin per the chart in your discharge paperwork * Blurry vision likely secondary to diabetic changes of the eye. I have contacted [facility] and you have an appointment on November [address] Sandoval * Keep feet elevated is much as possible. Wear compression sock on the right lower extremity. * Keep all follow-up appointments HPI General Date/Time Provider Initiated Documentation: 11/10/23 07:01 . Limitations to Documentation: no limitations . Information obtained by: patient and old records reviewed . HPI Narrative: 53-year-old gentleman with past medical history of diabetes, hypertension prolonged hospitalization for vascular insufficiency foot infection and amputation. Patient presents to the emergency department today with hypoglycemia. His reports that they have had a significant change in his diabetes management and that his blood sugars have been running fairly low since they left the hospital on Thursday. She reports the patient reports that he woke up at 2 AM feeling really bad, shaky little nauseated, his blood sugar at that time was 60. He denies any fever or chills. The wound VAC was pulled off when they were getting out of the car, he is still on antibiotics from discharge and has been compliant with these. He reports that he is concerned because his vision has been blurry while his blood sugar is low. He states that his blood sugars below 113, he develops blurry vision he does not have double vision or eye pain. He states when his blood sugar comes back up does not have any blurry vision anymore. Related Data Home Medications ?Medication ?Instructions ?Recorded ?Confirmed metformin 1,000 mg tablet 1,000 mg PO DAILY 02/19/18 11/10/23 glyburide 5 mg tablet 5 mg PO DAILY 10/23/23 11/10/23 levofloxacin 500 mg tablet 500 mg PO DAILY 10/23/23 11/10/23 lisinopril 40 mg tablet 20 mg PO DAILY 10/23/23 11/10/23 metoprolol tartrate 100 mg tablet 100 mg PO BID 10/23/23 11/10/23 simvastatin 40 mg tablet 40 mg PO QPM 10/23/23 11/10/23 acetaminophen 325 mg capsule 975 mg PO Q6H PRN 11/10/23 11/10/23 amlodipine 10 mg tablet 10 mg PO DAILY 11/10/23 11/10/23 amoxicillin 875 mg-potassium 1 tab PO BID 11/10/23 11/10/23 clavulanate 125 mg tablet aspirin 81 mg chewable tablet 81 mg PO DAILY 11/10/23 11/10/23 atorvastatin 40 mg tablet 40 mg PO QPM 11/10/23 11/10/23 ferrous sulfate 325 mg (65 mg 325 mg PO DAILY 11/10/23 11/10/23 iron) tablet,delayed release hydromorphone 2 mg tablet 2 mg PO Q6H PRN 11/10/23 11/10/23 insulin lispro 100 unit/mL 1 sliding scale dose subcut TID 11/10/23 11/10/23 subcutaneous pen (Humalog KwikPen (U-100) Insulin) insulin lispro 100 unit/mL See Rx Instructions subcut Q4H 11/10/23 11/10/23 subcutaneous solution senna-docusate sodium tablet 2 tab PO BID 11/10/23 11/10/23 Allergies Allergy/AdvReac Type Severity Reaction Status Date / Time No Known Allergies Allergy Unverified 11/10/23 07:17 General Stated Complaint: Diabetes GONZALES: 3 Exam Narrative Exam Narrative: Review of Systems: All systems reviewed & are unremarkable except as noted in HPI and below Well-developed, no acute distress NCAT PERRL, normal conjunctiva RRR no murmur Unlabored respiratory effort clear bilaterally Nondistended abdomen soft nontender Left foot amputation with postoperative wound dressing in place right lower extremity with some mild edema no focal neurologic deficits Appropriate mood and affect Course Vital Signs Vital signs: Vital Signs Temperature 36.8 C 11/10/23 07:06 Pulse 86 11/10/23 07:06 Respiratory Rate 18 11/10/23 07:06 Blood Pressure 210/70 H 11/10/23 07:06 Pulse Oximetry 97 11/10/23 07:06 Temperature 36.8 C 11/10/23 07:10 Temperature Source Temporal Artery Scan 11/10/23 07:10 Pulse 86 11/10/23 07:10 Respiratory Rate 18 11/10/23 07:10 Respiratory Effort Normal, Non-Labored 11/10/23 07:12 Blood Pressure 210/70 H 11/10/23 07:10 Blood Pressure Position Sitting 11/10/23 07:10 Pulse Oximetry 97 11/10/23 07:10 Oxygen Delivery Method Room Air 11/10/23 07:10 Oxygen Flow Rate 0 11/10/23 07:10 Medical Decision Making Emergent evaluation of hypoglycemia. I reviewed the patient's discharge summary and medical record from [facility]. He is on a fairly aggressive insulin regimen and was previously poorly controlled. Blood sugar here is low, he was given juice and it responded appropriately. I suspect that the hypoglycemia is secondary to his medication and not secondary to an infectious etiology. Although he does have an ongoing wound infection, I do not think that he is septic. Lab work reviewed, normal white blood cell count. Hemoglobin and hematocrit have improved, he has known chronic anemia. His creatinine is at baseline and the remainder of his lab work is unremarkable including a procalcitonin which is not elevated. I reviewed the insulin sliding scale with the who had some confusion about it, we talked about initiating the changes that they have recommended based on his sugar log. Recommended continued close monitoring of his blood sugar. He does have home health coming out tomorrow. He was provided GERBER hose for his right lower extremity edema which I recommend he wear in addition to keeping his foot elevated. Discussed with care managem ent about getting in with PCP as her seems to be some issues with him following up. No Medical Records Medical records reviewed: Yes I reviewed the patient's medical records. Lab Data Lab results reviewed: Yes I reviewed the patient's lab results. Quality:SDOH Health Related Social Needs: No Data to Display [facility] All Active Problems Blurring of vision (Acute) Hypoglycemia (Acute) Atherosclerosis of artery of both lower extremities (Acute) Gangrene of left foot (Acute) EDEN (acute kidney injury) (Acute) ETOH abuse (Chronic) Diabetes (Chronic) Puncture wound of left foot (Acute) Cellulitis of left foot (Acute) Medical History Discharge planning issues On deep vein thrombosis (DVT) prophylaxis Social History Smoking/Tobacco Use Status: Never Smoking risk assessment performed?: Yes Drug use: Never Substance use type: does not use Housing: house Do you feel safe in your relationship?: Yes PAWSS Have you Been Recently Intoxicated or Drunk Within the Last 30 days?: Yes Have you Ever Experienced Previous Episodes of Alcohol Withdrawal?: No Have you ever Experienced Withdrawal Seizures?: No Have you ever Experienced Delirium Tremens(DT)s?: No Have you ever undergone Alcohol Rehabilitation Treatment (i.e, inpt ot outpatient treatment programs)?: No Have you ever Experienced Blackouts?: No Have you ever Combined Alcohol with other Downers within the last 90 days?: No Have you ever Combined Alcohol with any other Substance of Abuse during the last 90 days?: No Positive Blood Alcohol level on Presentation? [PCS.BAL]: No Evidence of Increased Autonomic Activity (i.e. HR>120, tremor, sweating, agitation, nausea)?: No Result: 1
[2023-11-10 07:53] LABS: Abs Immature Grans 0.04 10^3/uL (0.0-0.06); Absolute Basophil Count 0.06 10^3/uL (0.0-0.2); Absolute Eosinophil Count 0.26 10^3/uL (0.0-0.7); Absolute Lymphocyte Count 1.41 10^3/uL (1.2-3.4); Absolute Monocyte Count 0.57 10^3/uL (0.1-0.8); Absolute Neutrophil Count 4.22 10^3/uL (1.2-6.7); BE (Venous) 1 mmol/L (-2-3); Basophils % 0.9 %; HCO3 (Venous) 26 mmol/L (23-28); HCT 30.4 % (40.0-50.0); HGB 10.4 g/dL (13.5-17.5); Immature Grans % 0.6 %; Lymphocytes % 21.5 %; MCH 28.4 pg (27.0-33.0); MCHC 34.2 % (32.0-36.0); MCV 83 fL (80-95); MPV 9.3 fL (8.0-11.0); Monocytes % 8.7 %; Neutrophils % 64.3 %; O2 Sat (Venous) 54 %; Platelet Count 342 10^3/uL (130-400); RBC 3.66 10^6/uL (4.36-5.78); RDW 13.1 % (11.8-14.1); RDW-SD 39.3 fL; TCO2 (Venous) 25 mmol/L (24-29); WBC 6.56 10^3/uL (4.4-10.8); pCO2 (Venous) 45 mmHg (41-51); pH (Venous) 7.38 (7.31-7.41); pO2 (Venous) 30 mmHg
[2023-11-10 08:13] LABS: ALT 15 U/L (16-63); AST 14 U/L (15-37); Alkaline Phosphatase 74 U/L (46-116); Anion Gap 7.7 mmol/L (3-11); BUN 28 mg/dL (7-18); Bilirubin, Total 0.18 mg/dL (0.2-1.0); CO2 28.3 mmol/L (21.0-32.0); CREATININE 1.7 mg/dL (0.70-1.30); Calcium 8.5 mg/dL (8.5-10.1); Chloride 105 mmol/L (98-107); Estimated GFR 47.02 (mL/min/1.73m2); Glucose 82 mg/dL (74-106); Potassium 3.8 mmol/L (3.5-5.1); Sodium 141 mmol/L (136-145); Total Protein 6.5 g/dL (6.4-8.2)
[2023-11-10 08:27] LABS: Procalcitonin < 0.1 ng/mL
--- NOTE | 2023-11-10 09:08 | NUR.NOTE ---
brought wound vac supplies from home. Wound vac redressed and restarted with good results.
--- NOTE | 2023-11-10 10:23 | CMPROGNOTE_ITS ---
Date of service: 11/10/23 Time of Service: 10:23 Care Management Progress Note Progress Note Text Progress Note Text: JANNET was consulted to help support Kenisha with a new PCP. CM contacted Kenisha's s/o, Elena, who is helping to care for him at home. CM advised that due to his medical complexity, it is important that he has a consistent PCP to follow his home health orders, as well as follow him closely after [place] [facility] Elena stated that they are interested in changing PCP offices despite this. CM informed Elena of the process to change his PCP, stating that he will need to contact his preferred office to determine if they are accepting new patients, fill out paperwork, and request that his records are sent to the new office. JANNET provided options for local PCP offices for Elena to reach out to; she expressed understanding of this process. JANNET spoke to his PCP office, [facility] (Dr. Thacker), who stated that Kenisha has a follow up appointment scheduled for next week. PCP office also reported that they felt that his home health orders should be followed by [facility] [place], and that Dr. Thacker will not follow orders until the patient is seen. CM encouraged Elena to bring Kenisha to the follow up appointment, if they are comfortable attending, to support the continuity of his care with home health, as it can take a prolonged amount of time for new patient appointments. SDOH(Care Management) Screening Will the Patient Participate in the Screening?: Unable to obtain
--- NOTE | 2023-11-11 05:07 | NUR.NOTE ---
Pt on care management referral list to establish primary care no PCP.Nursing Note:
== END 2023-11-10 09:42 | disposition home or self-care (01) ==
PROVIDERS: Emergency Provider Emergency Medicine; PCP Internal Medicine
DX: E11.649 Type 2 diabetes mellitus with hypoglycemia without coma (principal); H53.9 Unspecified visual disturbance; I10 Essential (primary) hypertension; Z79.82 Long term (current) use of aspirin; Z79.4 Long term (current) use of insulin; Z79.84 Long term (current) use of oral hypoglycemic drugs
CPT/HCPCS: 80053; 82805; 82962; 84145; 99283; 85025

== ENCOUNTER 2024-02-14 08:06 | Emergency (ER) | payer BC, SELFPAY ==
[2024-02-14 08:14] VITALS: BP 223/106; PULSE 79; RESP 16; TEMP 36.3; O2SAT 99
[2024-02-14 08:21] VITALS: BP 186/64; PULSE 78; RESP 16; TEMP 36.4; O2SAT 99
--- NOTE | 2024-02-14 08:26 | W.ED.GENAD ---
Discharge Plan Disposition Patient Disposition: Home Condition: Stable Discharge Details Clinical Impression: Cellulitis of great toe of right foot Primary Care Provider: Nilo Thacker ED Provider: Rolando Estrella Home Meds and New Rx's Prescriptions: Continued metformin 1,000 mg Tablet 1,000 mg PO DAILY dapagliflozin propanediol 10 mg tablet 10 mg PO DAILY Patient Comments: TAKE ONE TABLET BY MOUTH EVERY DAY at night lisinopril 40 mg tablet 20 mg PO DAILY Patient Comments: TAKE 1 TABLET BY MOUTH ONCE DAILY FOR 90 DAYS metoprolol tartrate 100 mg tablet 100 mg PO BID Patient Comments: TAKE 1 TABLET BY MOUTH TWICE DAILY FOR 90 DAYS acetaminophen 325 mg capsule 975 mg PO Q6H PRN amoxicillin-pot clavulanate 875-125 mg tablet 1 tab PO BID Patient Comments: TAKE ONE TABLET BY MOUTH TWICE A DAY FOR 14 DAYS aspirin 81 mg tablet,chewable 81 mg PO DAILY Patient Comments: CHEW ONE TABLET BY MOUTH EVERY DAY atorvastatin 40 mg tablet 40 mg PO QPM Patient Comments: TAKE ONE TABLET BY MOUTH EVERY EVENING senna-docusate sodium Tablet 2 tab PO BID Discharge Instructions Instructions: Cellulitis (Skin Infection), Adult ED Additional Instructions: You were seen in the emergency department for the slight bruising under your toenail of your right great toe. You are on antibiotics for a mild cellulitis, your circulation is intact in the toe on the brisk capillary refill, and palpable pedal pulses. I am not worried about emergent necrosis of the toe at this time and you do have follow-up with the custom applicator on Thursday. You are on antibiotics and have been for a couple days. This is the ideal treatment and I think should keep going on antibiotics and keep the area clean, please return for any severe increase in blackness to the toe, red streaking up the leg, fever, nausea or weakness. Referrals: Nilo Thacker [Primary Care Provider] - Discharge Data Discharge Date/Time-TO BE ENTERED AT DEPARTURE: 02/14/24 08:32 HPI General Date/Time Provider Initiated Documentation: 02/14/24 08:16. HPI Narrative: 53 year-old male presents to ED today by POV/ambulating with his with a chief complaint of concern for R great toe infection in the setting of t2DM, on antibiotics for 2.5 days, and has podiatry follow-up this Thursday. is concerned he has black/bruise under his R great toenail, but it does appear subjectively better in the lighting here at the ED. Quality described as not overly painful, no radiation to purulent drainage, erythema, pain with ambulation, pain with passive ROM. Severity is described as mild. Palliating factors include on antibiotics. Provoking factors include nothing specific- t2DM. Events leading up to the incident/Associated Symptoms: Patient has contralateral toe amputations, does not want it to get that bad on R foot. Patients' medical history: t2DM. Family and social history: noncontributory. Patient not anticoagulated. Related Data Home Medications ?Medication ?Instructions ?Recorded ?Confirmed metformin 1,000 mg tablet 1,000 mg PO DAILY 02/19/18 02/14/24 lisinopril 40 mg tablet 20 mg PO DAILY 10/23/23 02/14/24 metoprolol tartrate 100 mg tablet 100 mg PO BID 10/23/23 02/14/24 acetaminophen 325 mg capsule 975 mg PO Q6H PRN 11/10/23 02/14/24 amoxicillin 875 mg-potassium 1 tab PO BID 11/10/23 02/14/24 clavulanate 125 mg tablet aspirin 81 mg chewable tablet 81 mg PO DAILY 11/10/23 02/14/24 atorvastatin 40 mg tablet 40 mg PO QPM 11/10/23 02/14/24 senna-docusate sodium tablet 2 tab PO BID 11/10/23 02/14/24 dapagliflozin propanediol 10 mg 10 mg PO DAILY 02/14/24 02/14/24 tablet Allergies Allergy/AdvReac Type Severity Reaction Status Date / Time No Known Allergies Allergy Unverified 02/14/24 08:11 General Stated Complaint: Cellulitis GONZALES: 3 Exam Narrative Exam Narrative: GENERAL APPEARANCE: Well-nourished, non-toxic, awake and alert, atraumatic, no acute distress. SKIN: Warm, pink, dry, intact, without rashes/lesions/ulcerations. HEAD: Normocephalic, atraumatic, normal hair distribution for gender/age. EYES: Normal conjunctiva, no exudates on lids/lashes. ENT: Nares patent, no circumoral cyanosis, no facial swelling NECK: Supple, trachea midline, painless cervical ROM. LUNGS/CHEST: Non-labored respirations, normal A/P diameter, symmetrical expansion, no chest wall deformity HEART (CV/PV): Regular rate, R dorsalis pedis pulse 2+, no peripheral edema, no JVD. ABDOMEN: Soft, non-distended, no guarding. MSK: Normal ROM, no swelling/deformity to bilateral UEs or LEs, moving all extremities without weakness, no cyanosis, spine midline without tenderness, normal curvature. R FOOT: Very mild erythema without lesion or drainage or stokes erythema or pain with active or passive range of motion at the right great toe, no paronychia, brisk capillary refill in the pad of the right great toe, mild bruising under right great toenail, do not suspect ischemic etiology NEURO: Mental Status AAOx4 - alert to person, place, time, events No facial droop, no forehead involvement. Motor: No focal weakness - strength 5/5 in bilateral UEs and LEs, proximal and distal, symmetric. Sensory: sensation intact to light touch globally. Gait normal: patient ambulated without ataxia into ED room. PSYCH: euthymic, cooperative, pleasant, appropriate speech Course Vital Signs Vital signs: Vital Signs Temperature 36.3 C L 02/14/24 08:14 Pulse 79 02/14/24 08:14 Respiratory Rate 16 02/14/24 08:14 Blood Pressure 223/106 H 02/14/24 08:14 Pulse Oximetry 99 02/14/24 08:14 Temperature 36.4 C L 02/14/24 08:21 Temperature Source Temporal Artery Scan 02/14/24 08:21 Pulse 78 02/14/24 08:21 Respiratory Rate 16 02/14/24 08:21 Respiratory Effort Normal, Non-Labored 02/14/24 08:16 Blood Pressure 186/64 H 02/14/24 08:21 Blood Pressure Position Sitting 02/14/24 08:21 Pulse Oximetry 99 02/14/24 08:21 Oxygen Delivery Method Room Air 02/14/24 08:21 Oxygen Flow Rate 0 02/14/24 08:14 Pain Level 0 02/14/24 08:21 Medical Decision Making This dictation utilizes [id number] dictation software and may contain unedited grammatical errors. 53 year-old male presents to ED today by POV/ambulating with his with a chief complaint of concern for R great toe infection in the setting of t2DM, on antibiotics for 2.5 days, and has podiatry follow-up this Thursday. is concerned he has black/bruise under his R great toenail, but it does appear subjectively better in the lighting here at the ED. Quality described as not overly painful, no radiation to purulent drainage, erythema, pain with ambulation, pain with passive ROM. Severity is described as mild. Palliating factors include on antibiotics. Provoking factors include nothing specific- t2DM. Events leading up to the incident/Associated Symptoms: Patient has contralateral toe amputations, does not want it to get that bad on R foot. Patients' medical history: t2DM. Family and social history: noncontributory. Pertinent exam findings / vital signs include Very mild erythema without lesion or drainage or stokes erythema or pain with active or passive range of motion at the right great toe, no paronychia, brisk capillary refill in the pad of the right great toe, mild bruising under right great toenail, do not suspect ischemic etiology. Differential / pathologies of concern include mild bruising under right great toenail, brisk capillary refill, pedal pulses intact, very mild erythema at the lateral nail fold without purulence or drainage or stokes erythema. Diagnostic studies of: -None. Interventions of: -None, recommend continue antibiotics and follow-up podiatry. ED Course/Assessment/Plan: 53-year-old male presents with concern for bruising under his right great toenail, he is currently on antibiotics for mild cellulitis of the right great toe in the setting of type 2 diabetes mellitus, there is no intervention necessary at this time as the infection appears mild and responding to antibiotics and he is neurovascularly intact I do not suspect the bruising under his nail is being caused by an ischemic etiology, counseled on return criteria for severe worsening of the blackness under his toe, worsening infection despite treatment. Findings not consistent with ischemic toe, large abscess, severe cellulitis. Disposition of cellulitis of great toe of right foot. Patient verbalized understanding of the plan and return to ED criteria and engaged in shared decision making. Medical Records Medical records reviewed: Yes I reviewed the patient's medical records. Quality:SDOH Health Related Social Needs: No Data to Display PFSH All Active Problems (Updated 02/14/24 @ 08:26 by SHAHBAZ Alejandre) Cellulitis of great toe of right foot (Acute) Atherosclerosis of artery of both lower extremities (Acute) Gangrene of left foot (Acute) EDEN (acute kidney injury) (Acute) ETOH abuse (Chronic) Diabetes (Chronic) Puncture wound of left foot (Acute) Cellulitis of left foot (Acute) Medical History (Updated 02/14/24 @ 08:26 by SHAHBAZ Alejandre) Discharge planning issues On deep vein thrombosis (DVT) prophylaxis Social History Smoking/Tobacco Use Status: Never Smoking risk assessment performed?: Yes Drug use: Never Substance use type: does not use Housing: house Do you feel safe in your relationship?: Yes
== END 2024-02-14 08:32 | disposition home or self-care (01) ==
PROVIDERS: Emergency Provider Physician Assistant; PCP Internal Medicine
DX: L03.031 Cellulitis of right toe (principal); E11.628 Type 2 diabetes mellitus with other skin complications
CPT/HCPCS: 99282; 99283